=== PATIENT | female | born 1955 | race Caucasian/White ===

== ENCOUNTER 2019-06-20 14:47 | Inpatient (IN) | payer BC, SELFPAY ==
[~2019-06-20] VITALS: Ht 162.6 cm; Wt 77.3 kg
[2019-06-20] VITALS (9 sets, daily range): BP systolic 83–130; BP diastolic 36–71
[2019-06-20] MEDS ORDERED: ondansetron/PF 4mg/2ml inj IV ONE (15:20)
[2019-06-20] MEDS ORDERED: normal saline 1000ML IV soln IVB ONE (15:20)
[2019-06-20] MEDS ORDERED: morphine 4 MG/ML inj SYRINge IV PRN ×2 (15:20→17:50)
--- NOTE | 2019-06-20 15:33 | NUR ---
PT IN 12/13 PAIN UNABLE TO GIVE UA AT THIS TIME WILL CHECK AGAIN ONCE PAIN MEDS HAVE TAKEN EFFECT
[2019-06-20 15:38] LABS: BASOPHILS # (AUTO) 0.1 X10'3 (0-0.2); BASOPHILS % (AUTO) 0.4 % (0-1); EOSINOPHILS % (AUTO) 0.2 % (0-6); HEMATOCRIT 32.9 % (35.0-45.0); HEMOGLOBIN 10.8 g/dl (12.0-16.0); LYMPHOCYTES # (AUTO) 1.5 X10'3 (1.1-4.8); LYMPHOCYTES % (AUTO) 10.3 % (21-51); MEAN CORPUSCULAR HEMOGLOBIN 28.3 PG (27.0-31.0); MEAN CORPUSCULAR HGB CONC 32.9 g/dL (33.0-36.5); MEAN CORPUSCULAR VOLUME 86.2 FL (78-98); MEAN PLATELET VOLUME 7.7 FL (7.4-10.4); MONOCYTES # (AUTO) 0.6 X10'3 (0-0.9); MONOCYTES % (AUTO) 3.9 % (2-12); NEUTROPHILS # (AUTO) 12.7 X10'3 (1.8-7.7); NEUTROPHILS % (AUTO) 85.2 % (42-75); PLATELET COUNT 365 X10'3 (140-440); RED BLOOD COUNT 3.82 X10'6 (4.20-5.60); RED CELL DISTRIBUTION WIDTH 13.4 % (11.5-14.5); WHITE BLOOD COUNT 14.9 X10'3 (4.5-11.0)
[2019-06-20] MEDS ORDERED: fentaNYL/PF 50MCG/1 ML 2ML syringe IV ONE ×2 (15:45→16:35)
[2019-06-20 15:50] LABS: ALANINE AMINOTRANSFERASE 14 U/L (12-78); ALBUMIN 3.6 G/DL (3.4-5.0); ALBUMIN/GLOBULIN RATIO 1.2 (1.1-1.5); ALKALINE PHOSPHATASE 75 IU/L (46-116); ANION GAP 9 (8-16); ASPARTATE AMINO TRANSFERASE 18 U/L (10-37); BILIRUBIN,TOTAL 0.3 MG/DL (0.1-1.0); BLOOD UREA NITROGEN 17 MG/DL (7-18); BUN/CREATININE RATIO 18.1 (6.6-38.0); CALCIUM 8.7 MG/DL (8.5-10.1); CHLORIDE 108 MMOL/L (99-107); CREATININE 0.94 MG/DL (0.40-0.90); GLUCOSE 204 MG/DL (70-104); LIPASE 144 U/L (73-393); POTASSIUM 3.4 MMOL/L (3.5-5.1); SODIUM 141 MMOL/L (135-145); TOTAL CARBON DIOXIDE 24.3 MMOL/L (24-32); TOTAL PROTEIN 6.7 G/DL (6.4-8.2); eGFR 60 ML/MIN
[2019-06-20] MEDS ORDERED: potassium Cl 20 mEq SR tablet PO ONE (15:55)
--- NOTE | 2019-06-20 15:59 | NUR ---
MORPHINE DID NOT DECREASE PAIN, FENTANYL WAS ORDERED AND GIVEN WILL CONTINUE TO MONITOR
--- NOTE | 2019-06-20 16:03 | NUR ---
PT COMPLAINING OF LEFT CHEST PAIN NON RADIATING, EKG AND TROPONINS WILL BE ORDERED
--- NOTE | 2019-06-20 16:42 | NUR ---
jaden [phone]
[2019-06-20] MEDS ORDERED: fentaNYL/PF 50MCG/1 ML 2ML syringe ONE ×2 (17:33→18:03)
[2019-06-20] MEDS ORDERED: heparin 1,000 UNITS/NS 500ml 500 ML ONE (17:33)
[2019-06-20] MEDS ORDERED: midazolam 2 mg/2 ml injection ONE ×2 (17:33→18:03)
[2019-06-20] MEDS ORDERED: iohexol 300mg/ml 100ml inj. ONE (17:33)
[2019-06-20] MEDS ORDERED: LIDOcaine 1%/PF 5ML 10 MG/ML VIAL ONE (17:33)
--- NOTE | 2019-06-20 17:43 | NUR ---
off to IR
[2019-06-20] MEDS: normal saline 1000ml 1,000 ML IV SCH (17:48)
[2019-06-20] MEDS ORDERED: magnesium hydroxide 30ml (MOM) UD suspension PO PRN (17:50)
[2019-06-20] MEDS ORDERED: potassium CL 10mEq/100ml bag 100 ML IV PRN ×2 (17:50)
[2019-06-20] MEDS ORDERED: morphine 2 MG/ML inj. syringe IV PRN (17:50)
[2019-06-20] MEDS ORDERED: HYDROcodone/acetaminophen 10/325mg tab PO PRN (17:50)
[2019-06-20] MEDS ORDERED: acetaminophen 325mg tablet PO PRN ×2 (17:50)
[2019-06-20] MEDS ORDERED: potassium Cl 20 mEq SR tablet PO PRN ×2 (17:50)
[2019-06-20] MEDS ORDERED: LIDOcaine 2% 10ml TOPICAL JELLY (Urojet) TP ONE (17:50)
[2019-06-20] MEDS ORDERED: ondansetron/PF 4mg/2ml inj ONE (18:08)
[2019-06-20] MEDS ORDERED: normal saline 1000ml 1,000 ML IV SCH (18:52)
[2019-06-20] MEDS ORDERED: naloxone 0.4 mg/ml inj IV PRN (18:55)
[2019-06-20] MEDS ORDERED: CADD PCA waste documentation MC PRN (18:55)
--- NOTE | 2019-06-20 19:11 | NUR ---
GAVE REPORT TO KESHAWN RAHMAN IN ICU, PT HAD GONE TO IR THEN WAS ADMITTED TO THE ICU
[2019-06-20 20:14] LABS: HEMATOCRIT 29.6 % (35.0-45.0); HEMOGLOBIN 9.8 g/dl (12.0-16.0); MEAN CORPUSCULAR HEMOGLOBIN 29.4 PG (27.0-31.0); MEAN CORPUSCULAR HGB CONC 33.2 g/dL (33.0-36.5); MEAN CORPUSCULAR VOLUME 88.6 FL (78-98); MEAN PLATELET VOLUME 7.8 FL (7.4-10.4); PLATELET COUNT 289 X10'3 (140-440); RED BLOOD COUNT 3.34 X10'6 (4.20-5.60); RED CELL DISTRIBUTION WIDTH 13.4 % (11.5-14.5); WHITE BLOOD COUNT 20.3 X10'3 (4.5-11.0)
[2019-06-20] MEDS: HYDROmorphone/NS 1 mg/ml CADD 50 ML IV SCH ×3 (21:00→23:00)
[2019-06-20] MEDS: ondansetron/PF 4mg/2ml inj IV PRN (21:15)
[2019-06-21] VITALS (23 sets, daily range): BP systolic 99–133; BP diastolic 47–69
--- NOTE | 2019-06-21 | NUR ---
RN Note -Pt back from IR. Sheath left in with a-line. Addendum: 06/22/19 at 0447 by Rosmery Matta RN entered in error, wrong time. Meant for 06/21 0000
[2019-06-21] MEDS: HYDROmorphone/NS 1 mg/ml CADD 50 ML IV SCH ×11 (00:33→23:00)
[2019-06-21 01:28] LABS: BASOPHILS % (AUTO) 0.2 % (0-1); EOSINOPHILS % (AUTO) 0.1 % (0-6); HEMOGLOBIN 8.7 g/dl (12.0-16.0); LYMPHOCYTES # (AUTO) 1.2 X10'3 (1.1-4.8); LYMPHOCYTES % (AUTO) 6.9 % (21-51); MEAN CORPUSCULAR HEMOGLOBIN 29.4 PG (27.0-31.0); MEAN CORPUSCULAR HGB CONC 33.5 g/dL (33.0-36.5); MEAN CORPUSCULAR VOLUME 87.7 FL (78-98); MEAN PLATELET VOLUME 7.6 FL (7.4-10.4); MONOCYTES # (AUTO) 0.7 X10'3 (0-0.9); MONOCYTES % (AUTO) 4.4 % (2-12); NEUTROPHILS # (AUTO) 14.8 X10'3 (1.8-7.7); NEUTROPHILS % (AUTO) 88.4 % (42-75); PLATELET COUNT 329 X10'3 (140-440); RED BLOOD COUNT 2.96 X10'6 (4.20-5.60); RED CELL DISTRIBUTION WIDTH 13.8 % (11.5-14.5); WHITE BLOOD COUNT 16.8 X10'3 (4.5-11.0)
[2019-06-21 01:41] LABS: ALANINE AMINOTRANSFERASE 10 U/L (12-78); ALBUMIN 3.1 G/DL (3.4-5.0); ALBUMIN/GLOBULIN RATIO 1.1 (1.1-1.5); ALKALINE PHOSPHATASE 67 IU/L (46-116); ANION GAP 10 (8-16); ASPARTATE AMINO TRANSFERASE 17 U/L (10-37); BILIRUBIN,TOTAL 0.2 MG/DL (0.1-1.0); BLOOD UREA NITROGEN 21 MG/DL (7-18); BUN/CREATININE RATIO 17.2 (6.6-38.0); CHLORIDE 109 MMOL/L (99-107); CREATININE 1.22 MG/DL (0.40-0.90); GLUCOSE 215 MG/DL (70-104); POTASSIUM 4.1 MMOL/L (3.5-5.1); SODIUM 143 MMOL/L (135-145); TOTAL CARBON DIOXIDE 24.5 MMOL/L (24-32); eGFR 44 ML/MIN
[2019-06-21 01:43] LABS: MAGNESIUM 1.9 MG/DL (1.5-2.4); PHOSPHORUS 5.3 MG/DL (2.3-4.5)
--- NOTE | 2019-06-21 01:52 | NUR ---
PT hemoglobin 8.7, it has been consistantly dropping over each test. March was informed, will continue to monitor.
[2019-06-21] MEDS: ondansetron/PF 4mg/2ml inj IV PRN ×3 (03:11→15:46)
[2019-06-21 06:21] LABS: HEMATOCRIT 26.4 % (35.0-45.0); HEMOGLOBIN 8.9 g/dl (12.0-16.0); MEAN CORPUSCULAR HEMOGLOBIN 29.6 PG (27.0-31.0); MEAN CORPUSCULAR HGB CONC 33.6 g/dL (33.0-36.5); MEAN CORPUSCULAR VOLUME 87.9 FL (78-98); MEAN PLATELET VOLUME 7.6 FL (7.4-10.4); PLATELET COUNT 293 X10'3 (140-440); RED CELL DISTRIBUTION WIDTH 13.6 % (11.5-14.5)
--- NOTE | 2019-06-21 06:56 | NUR ---
Patient in room ICU 2043. I have received report from LACEY Gómez and had the opportunity to ask questions and assume patient care.
[2019-06-21] MEDS: normal saline 1000ml 1,000 ML IV SCH ×2 (07:08→18:25)
[2019-06-21] MEDS ORDERED: CHOL20004 PO (08:09)
[2019-06-21] MEDS ORDERED: CHOL100017 PO (10:36)
[2019-06-21] MEDS ORDERED: epoetin 20,000 units/ml inj SQ ONE (11:25)
[2019-06-21 12:15] LABS: HEMOGLOBIN 7.2 g/dl (12.0-16.0); MEAN CORPUSCULAR HEMOGLOBIN 28.6 PG (27.0-31.0); MEAN CORPUSCULAR HGB CONC 33.3 g/dL (33.0-36.5); MEAN PLATELET VOLUME 7.4 FL (7.4-10.4); PLATELET COUNT 242 X10'3 (140-440); RED BLOOD COUNT 2.51 X10'6 (4.20-5.60); RED CELL DISTRIBUTION WIDTH 13.4 % (11.5-14.5); WHITE BLOOD COUNT 11.9 X10'3 (4.5-11.0)
[2019-06-21 12:19] LABS: HEMATOCRIT 21.6 % (35.0-45.0)
[2019-06-21 12:49] LABS: FERRITIN 56 NG/ML (8-252)
[2019-06-21] MEDS: sodium ferric gluc complex inj 125 MG in normal saline 100ml IV soln 100 ML IV SCH (12:49)
[2019-06-21 12:52] LABS: % IRON SATURATION 8 % (11-46); IRON 19 UG/DL (49-151); TOTAL IRON BINDING CAPACITY 225 UG/DL (259-388)
[2019-06-21 18:08] LABS: MEAN CORPUSCULAR HEMOGLOBIN 29.3 PG (27.0-31.0); MEAN CORPUSCULAR HGB CONC 33.8 g/dL (33.0-36.5); MEAN CORPUSCULAR VOLUME 86.8 FL (78-98); MEAN PLATELET VOLUME 7.7 FL (7.4-10.4); PLATELET COUNT 212 X10'3 (140-440); RED BLOOD COUNT 2.25 X10'6 (4.20-5.60); RED CELL DISTRIBUTION WIDTH 13.4 % (11.5-14.5); WHITE BLOOD COUNT 9.6 X10'3 (4.5-11.0)
[2019-06-21 18:16] LABS: HEMATOCRIT 19.5 % (35.0-45.0); HEMOGLOBIN 6.6 g/dl (12.0-16.0)
--- NOTE | 2019-06-21 18:19 | NUR ---
Problems reprioritized. Patient report given, questions answered & plan of care reviewed with Winter Spicer RN.
--- NOTE | 2019-06-21 18:30 | NUR ---
RN Note -MD Communication Dr. Luo and Dr. Phillip called regarding critical H&H. No new orders at this time.
--- NOTE | 2019-06-21 21:00 | NUR ---
RN Note -MD Communication Dr. Hameed called to order STAT ab/pelvis CT w/o contrast.
[2019-06-21 21:45] LABS: CLARITY,URINE CLOUDY (Clear); COLOR,URINE YELLOW (Yellow); GLUCOSE, URINE NEGATIVE (Neg); KETONES,URINE NEGATIVE (Neg); LEUKOCYTE ESTERASE ,URINE TRACE (Neg); NITRITES, URINE NEGATIVE (Neg); OCCULT BLOOD,URINE SMALL (Neg); PROTEIN,URINE TRACE mg/dl (Neg); UROBILINOGEN,URINE 0.2 E.U/dL (0.2-1.0)
[2019-06-21 21:53] LABS: UA COLLECTION TYPE CLN CATCH MIDSTREAM
[2019-06-21 21:54] LABS: BACTERIA,URINE FEW /HPF (Neg); RBC,URINE 0-2 /HPF (0-2); SQUAMOUS EPITHELIAL CELL,UR MODERATE /LPF (FEW)
[2019-06-21] MEDS ORDERED: iohexol 300mg/ml 100ml inj. ONE ×2 (22:02→23:11)
[2019-06-21 22:12] LABS: MEAN CORPUSCULAR HGB CONC 34.3 g/dL (33.0-36.5); MEAN CORPUSCULAR VOLUME 87.4 FL (78-98); MEAN PLATELET VOLUME 7.6 FL (7.4-10.4); PLATELET COUNT 192 X10'3 (140-440); RED BLOOD COUNT 2.16 X10'6 (4.20-5.60); RED CELL DISTRIBUTION WIDTH 13.8 % (11.5-14.5); WHITE BLOOD COUNT 9.5 X10'3 (4.5-11.0)
[2019-06-21] MEDS ORDERED: midazolam 2 mg/2 ml injection ONE (22:12)
[2019-06-21] MEDS ORDERED: fentaNYL/PF 50MCG/1 ML 2ML syringe ONE (22:12)
[2019-06-21] MEDS ORDERED: heparin 1,000 UNITS/NS 500ml 500 ML ONE ×2 (22:13→23:11)
[2019-06-21 22:16] LABS: HEMATOCRIT 18.9 % (35.0-45.0); HEMOGLOBIN 6.5 g/dl (12.0-16.0)
[2019-06-21 22:21] LABS: PARTIAL THROMBOPLASTIN TIME 28 SECONDS (22-32)
[2019-06-21 22:22] LABS: ALANINE AMINOTRANSFERASE 12 U/L (12-78); ALBUMIN 3.1 G/DL (3.4-5.0); ALBUMIN/GLOBULIN RATIO 1.1 (1.1-1.5); ALKALINE PHOSPHATASE 64 IU/L (46-116); ANION GAP 5 (8-16); ASPARTATE AMINO TRANSFERASE 32 U/L (10-37); BILIRUBIN,TOTAL 0.2 MG/DL (0.1-1.0); BLOOD UREA NITROGEN 32 MG/DL (7-18); BUN/CREATININE RATIO 19.6 (6.6-38.0); CALCIUM 8.2 MG/DL (8.5-10.1); CHLORIDE 110 MMOL/L (99-107); CREATININE 1.63 MG/DL (0.40-0.90); GLUCOSE 104 MG/DL (70-104); POTASSIUM 4.3 MMOL/L (3.5-5.1); SODIUM 141 MMOL/L (135-145); eGFR 32 ML/MIN
--- NOTE | 2019-06-21 22:30 | NUR ---
RN Note -Cleared with Boat[employer] Wood to allow to visit pt before IR procedure
[2019-06-21] MEDS ORDERED: ondansetron/PF 4mg/2ml inj ONE (23:30)
[2019-06-21] MEDS ORDERED: DESMOPRESSIN IV ONE (23:40)
[2019-06-21] MEDS ORDERED: tranexamic acid 1gm/0.7% sal. 100 ML IV ONE (23:40)
[2019-06-21] MEDS ORDERED: NORMAL SALINE IV ONE (23:40)
[2019-06-22] VITALS (27 sets, daily range): BP systolic 105–142; BP diastolic 49–69
--- NOTE | 2019-06-22 | NUR ---
RN Note -Pt back from IR. Sheath left in with a-line.
[2019-06-22] MEDS: HYDROmorphone/NS 1 mg/ml CADD 50 ML IV SCH ×12 (01:00→23:00)
[2019-06-22] MEDS: proCHLORperazine 10 MG/2 ml inj IV PRN ×2 (01:35→19:07)
--- NOTE | 2019-06-22 03:00 | NUR ---
RN Note -MD Communication March notified of critical H&H 6.0 and 17.9. No new orders at this time.
[2019-06-22 03:12] LABS: BASOPHILS % (AUTO) 0.3 % (0-1); EOSINOPHILS % (AUTO) 0.1 % (0-6); LYMPHOCYTES # (AUTO) 0.8 X10'3 (1.1-4.8); LYMPHOCYTES % (AUTO) 9.1 % (21-51); MEAN CORPUSCULAR HEMOGLOBIN 29.5 PG (27.0-31.0); MEAN CORPUSCULAR HGB CONC 34.2 g/dL (33.0-36.5); MEAN CORPUSCULAR VOLUME 86.3 FL (78-98); MEAN PLATELET VOLUME 7.4 FL (7.4-10.4); MONOCYTES # (AUTO) 0.8 X10'3 (0-0.9); MONOCYTES % (AUTO) 8.5 % (2-12); NEUTROPHILS # (AUTO) 7.6 X10'3 (1.8-7.7); PLATELET COUNT 177 X10'3 (140-440); RED BLOOD COUNT 2.04 X10'6 (4.20-5.60); RED CELL DISTRIBUTION WIDTH 13.9 % (11.5-14.5); WHITE BLOOD COUNT 9.2 X10'3 (4.5-11.0)
[2019-06-22 03:20] LABS: HEMATOCRIT 17.6 % (35.0-45.0)
[2019-06-22 03:28] LABS: ALANINE AMINOTRANSFERASE 12 U/L (12-78); ALBUMIN 2.9 G/DL (3.4-5.0); ALKALINE PHOSPHATASE 64 IU/L (46-116); ANION GAP 5 (8-16); ASPARTATE AMINO TRANSFERASE 31 U/L (10-37); BILIRUBIN,TOTAL 0.2 MG/DL (0.1-1.0); BLOOD UREA NITROGEN 28 MG/DL (7-18); BUN/CREATININE RATIO 21.7 (6.6-38.0); CALCIUM 8.1 MG/DL (8.5-10.1); CHLORIDE 110 MMOL/L (99-107); CREATININE 1.29 MG/DL (0.40-0.90); GLUCOSE 116 MG/DL (70-104); MAGNESIUM 2.1 MG/DL (1.5-2.4); PHOSPHORUS 3.7 MG/DL (2.3-4.5); POTASSIUM 4.2 MMOL/L (3.5-5.1); SODIUM 141 MMOL/L (135-145); TOTAL CARBON DIOXIDE 25.8 MMOL/L (24-32); TOTAL PROTEIN 5.8 G/DL (6.4-8.2); eGFR 42 ML/MIN
[2019-06-22] MEDS ORDERED: epoetin 20,000 units/ml inj SQ ONE (09:00)
[2019-06-22 09:21] LABS: MEAN CORPUSCULAR HEMOGLOBIN 30.3 PG (27.0-31.0); MEAN CORPUSCULAR VOLUME 86.6 FL (78-98); MEAN PLATELET VOLUME 7.3 FL (7.4-10.4); PLATELET COUNT 170 X10'3 (140-440); RED BLOOD COUNT 1.88 X10'6 (4.20-5.60); RED CELL DISTRIBUTION WIDTH 13.6 % (11.5-14.5); WHITE BLOOD COUNT 9.4 X10'3 (4.5-11.0)
[2019-06-22 09:26] LABS: HEMATOCRIT 16.3 % (35.0-45.0); HEMOGLOBIN 5.7 g/dl (12.0-16.0)
[2019-06-22] MEDS ORDERED: LIDOcaine 2% 10ml TOPICAL JELLY (Urojet) TP ONE (09:27)
--- NOTE | 2019-06-22 10:10 | NUR ---
All critical lab values have been reported to MD this morning within 30 minutes of results
[2019-06-22 10:46] LABS: ABG BASE EXCESS -1.6 mmol/L (-2.0-3.0); ABG HCO3 22.9 mmol/L (22.0-26.0); ABG OXYGEN SATURATION 95.1 % (95-98); ABG PCO2 (T) 36.8 mmHg (35.0-45.0); ABG PH (T) 7.411 (7.350-7.450); ABG PO2 (T) 75.8 mmHg (83-108); FCOHb 0.1 % (0.5-1.5); TOTAL HEMOGLOBIN 5.8 G/dl (12.0-16.0)
--- NOTE | 2019-06-22 12:03 | NUR ---
per Dr Luo, we are using ABG for hemoglobin to minimize blood loss at it requires less blood then a hemogram
[2019-06-22] MEDS: sodium ferric gluc complex inj 125 MG in normal saline 100ml IV soln 100 ML IV SCH (12:05)
[2019-06-22 14:11] LABS: ABG BASE EXCESS -1.2 mmol/L (-2.0-3.0); ABG HCO3 23.4 mmol/L (22.0-26.0); ABG OXYGEN SATURATION 95.1 % (95-98); ABG PCO2 (T) 38.1 mmHg (35.0-45.0); ABG PH (T) 7.406 (7.350-7.450); ABG PO2 (T) 76.9 mmHg (83-108); FCOHb 0.3 % (0.5-1.5); FMetHb 0.2 % (0.3-1.12); FO2Hb 94.6 % (94-100); TOTAL HEMOGLOBIN 6.1 G/dl (12.0-16.0)
[2019-06-22 17:16] LABS: ABG BASE EXCESS -1.1 mmol/L (-2.0-3.0); ABG HCO3 23.8 mmol/L (22.0-26.0); ABG OXYGEN SATURATION 95.1 % (95-98); ABG PCO2 (T) 40.3 mmHg (35.0-45.0); ABG PH (T) 7.389 (7.350-7.450); ABG PO2 (T) 77.4 mmHg (83-108); FCOHb 0.3 % (0.5-1.5); FLOW 2 L/min; FMetHb 0.3 % (0.3-1.12); FO2Hb 94.5 % (94-100); TOTAL HEMOGLOBIN 5.9 G/dl (12.0-16.0)
[2019-06-22] MEDS: pantoprazole 40 MG vial IV SCH (19:06)
[2019-06-22 21:11] LABS: ABG BASE EXCESS 0.9 mmol/L (-2.0-3.0); ABG HCO3 25.7 mmol/L (22.0-26.0); ABG OXYGEN SATURATION 91.7 % (95-98); ABG PCO2 (T) 42.1 mmHg (35.0-45.0); ABG PH (T) 7.404 (7.350-7.450); ABG PO2 (T) 63.4 mmHg (83-108); FCOHb 0.3 % (0.5-1.5); FLOW 2 L/min; FO2Hb 91.4 % (94-100); TOTAL HEMOGLOBIN 5.9 G/dl (12.0-16.0)
[2019-06-23] VITALS (24 sets, daily range): BP systolic 111–142; BP diastolic 43–86
[2019-06-23] MEDS: HYDROmorphone/NS 1 mg/ml CADD 50 ML IV SCH ×12 (00:54→23:00)
[2019-06-23 01:26] LABS: ABG BASE EXCESS -0.2 mmol/L (-2.0-3.0); ABG HCO3 24.7 mmol/L (22.0-26.0); ABG OXYGEN SATURATION 93.2 % (95-98); ABG PCO2 (T) 41.7 mmHg (35.0-45.0); ABG PH (T) 7.391 (7.350-7.450); ABG PO2 (T) 67.8 mmHg (83-108); FCOHb 0.3 % (0.5-1.5); FLOW 2 L/min; FMetHb 0.3 % (0.3-1.12); FO2Hb 92.6 % (94-100); TOTAL HEMOGLOBIN 6.1 G/dl (12.0-16.0)
[2019-06-23 03:13] LABS: BASOPHILS % (AUTO) 0.1 % (0-1); EOSINOPHILS % (AUTO) 0.1 % (0-6); LYMPHOCYTES # (AUTO) 0.7 X10'3 (1.1-4.8); LYMPHOCYTES % (AUTO) 6.3 % (21-51); MEAN CORPUSCULAR HEMOGLOBIN 29.7 PG (27.0-31.0); MEAN CORPUSCULAR VOLUME 87.3 FL (78-98); MEAN PLATELET VOLUME 7.6 FL (7.4-10.4); MONOCYTES # (AUTO) 0.8 X10'3 (0-0.9); MONOCYTES % (AUTO) 7.6 % (2-12); NEUTROPHILS # (AUTO) 9.1 X10'3 (1.8-7.7); NEUTROPHILS % (AUTO) 85.9 % (42-75); PLATELET COUNT 185 X10'3 (140-440); WHITE BLOOD COUNT 10.5 X10'3 (4.5-11.0)
[2019-06-23 03:19] LABS: HEMOGLOBIN 5.6 g/dl (12.0-16.0)
[2019-06-23 03:20] LABS: HEMATOCRIT 16.6 % (35.0-45.0)
[2019-06-23 03:27] LABS: ALANINE AMINOTRANSFERASE 15 U/L (12-78); ALBUMIN 2.7 G/DL (3.4-5.0); ALBUMIN/GLOBULIN RATIO 0.8 (1.1-1.5); ALKALINE PHOSPHATASE 60 IU/L (46-116); ANION GAP 5 (8-16); ASPARTATE AMINO TRANSFERASE 44 U/L (10-37); BILIRUBIN,TOTAL 0.4 MG/DL (0.1-1.0); BLOOD UREA NITROGEN 18 MG/DL (7-18); BUN/CREATININE RATIO 21.2 (6.6-38.0); CALCIUM 8.3 MG/DL (8.5-10.1); CHLORIDE 109 MMOL/L (99-107); CREATININE 0.85 MG/DL (0.40-0.90); GLUCOSE 86 MG/DL (70-104); MAGNESIUM 2.2 MG/DL (1.5-2.4); PHOSPHORUS 3.2 MG/DL (2.3-4.5); POTASSIUM 4.1 MMOL/L (3.5-5.1); SODIUM 141 MMOL/L (135-145); TOTAL CARBON DIOXIDE 26.9 MMOL/L (24-32); TOTAL PROTEIN 5.9 G/DL (6.4-8.2); eGFR 67 ML/MIN
[2019-06-23] MEDS: pantoprazole 40 MG vial IV SCH (07:40)
[2019-06-23 07:46] LABS: ABG BASE EXCESS -2.2 mmol/L (-2.0-3.0); ABG HCO3 22.5 mmol/L (22.0-26.0); ABG OXYGEN SATURATION 95.8 % (95-98); ABG PCO2 (T) 37.8 mmHg (35.0-45.0); ABG PH (T) 7.393 (7.350-7.450); ABG PO2 (T) 85.7 mmHg (83-108); FCOHb 0.3 % (0.5-1.5); FMetHb 0.1 % (0.3-1.12); FO2Hb 95.4 % (94-100); TOTAL HEMOGLOBIN 6.3 G/dl (12.0-16.0)
[2019-06-23] MEDS: sodium ferric gluc complex inj 125 MG in normal saline 100ml IV soln 100 ML IV SCH (08:26)
[2019-06-23] MEDS: folic acid 1mg tablet PO SCH (09:19)
[2019-06-23] MEDS ORDERED: epoetin 20,000 units/ml inj SQ ONE (09:20)
[2019-06-23] MEDS ORDERED: sodium ferric gluc complex inj 125 MG in normal saline 100ml IV soln 100 ML IV ONE (09:30)
[2019-06-23 11:30] LABS: ABG BASE EXCESS -2.5 mmol/L (-2.0-3.0); ABG HCO3 22.2 mmol/L (22.0-26.0); ABG OXYGEN SATURATION 97.7 % (95-98); ABG PCO2 (T) 37.6 mmHg (35.0-45.0); ABG PO2 (T) 113.4 mmHg (83-108); FCOHb 0.3 % (0.5-1.5); FMetHb 0.4 % (0.3-1.12); TOTAL HEMOGLOBIN 5.7 G/dl (12.0-16.0)
[2019-06-23] MEDS ORDERED: albumin (Human) 5% 250ml 250 ML IV ONE ×2 (13:20→14:20)
[2019-06-23 15:10] LABS: ABG BASE EXCESS -1.7 mmol/L (-2.0-3.0); ABG HCO3 22.8 mmol/L (22.0-26.0); ABG OXYGEN SATURATION 95.7 % (95-98); ABG PCO2 (T) 36.4 mmHg (35.0-45.0); ABG PH (T) 7.414 (7.350-7.450); ABG PO2 (T) 83.6 mmHg (83-108); FO2Hb 95.7 % (94-100); TOTAL HEMOGLOBIN 5.3 G/dl (12.0-16.0)
--- NOTE | 2019-06-23 15:31 | NUR ---
Hgb 5.3, called Dr. Phillip and received order to check Folate and B2 Level. [facility] Order placed and called Lab to process this order through a pathologist.
--- NOTE | 2019-06-23 18:21 | NUR ---
Problems reprioritized. Patient report given to Jluis, questions answered & plan of care reviewed with .
[2019-06-23 19:26] LABS: ABG HCO3 24.8 mmol/L (22.0-26.0); ABG OXYGEN SATURATION 93.5 % (95-98); ABG PCO2 (T) 40.5 mmHg (35.0-45.0); ABG PH (T) 7.404 (7.350-7.450); ABG PO2 (T) 69.2 mmHg (83-108); FCOHb 0.4 % (0.5-1.5); FLOW 2 L/min; FMetHb 0.1 % (0.3-1.12); TOTAL HEMOGLOBIN 5.9 G/dl (12.0-16.0)
[2019-06-23] MEDS: normal saline 1000ml 1,000 ML IV SCH (20:57)
[2019-06-23 23:26] LABS: ABG BASE EXCESS 0.3 mmol/L (-2.0-3.0); ABG HCO3 24.6 mmol/L (22.0-26.0); ABG OXYGEN SATURATION 95.3 % (95-98); ABG PCO2 (T) 37.8 mmHg (35.0-45.0); ABG PH (T) 7.432 (7.350-7.450); ABG PO2 (T) 80.5 mmHg (83-108); FCOHb 0.1 % (0.5-1.5); FLOW 2 L/min; FMetHb 0.5 % (0.3-1.12); FO2Hb 94.7 % (94-100); TOTAL HEMOGLOBIN 5.7 G/dl (12.0-16.0)
[2019-06-24] VITALS (23 sets, daily range): BP systolic 104–155; BP diastolic 56–85
[2019-06-24] MEDS: HYDROmorphone/NS 1 mg/ml CADD 50 ML IV SCH ×9 (01:00→23:00)
[2019-06-24 03:01] LABS: ABG BASE EXCESS -0.2 mmol/L (-2.0-3.0); ABG HCO3 24.4 mmol/L (22.0-26.0); ABG OXYGEN SATURATION 96.4 % (95-98); ABG PCO2 (T) 39.5 mmHg (35.0-45.0); ABG PH (T) 7.409 (7.350-7.450); ABG PO2 (T) 86.1 mmHg (83-108); FCOHb 0.7 % (0.5-1.5); FLOW 2 L/min; FMetHb 0.1 % (0.3-1.12); FO2Hb 95.6 % (94-100); TOTAL HEMOGLOBIN 5.5 G/dl (12.0-16.0)
[2019-06-24 03:27] LABS: BASOPHILS % (AUTO) 0.5 % (0-1); EOSINOPHILS # (AUTO) 0.1 X10'3 (0-0.9); EOSINOPHILS % (AUTO) 0.9 % (0-6); LYMPHOCYTES # (AUTO) 0.9 X10'3 (1.1-4.8); LYMPHOCYTES % (AUTO) 10.2 % (21-51); MEAN CORPUSCULAR HEMOGLOBIN 29.8 PG (27.0-31.0); MEAN CORPUSCULAR VOLUME 87.5 FL (78-98); MEAN PLATELET VOLUME 7.7 FL (7.4-10.4); MONOCYTES # (AUTO) 0.7 X10'3 (0-0.9); MONOCYTES % (AUTO) 7.8 % (2-12); NEUTROPHILS # (AUTO) 7.3 X10'3 (1.8-7.7); NEUTROPHILS % (AUTO) 80.6 % (42-75); PLATELET COUNT 231 X10'3 (140-440); RED BLOOD COUNT 1.83 X10'6 (4.20-5.60); RED CELL DISTRIBUTION WIDTH 13.5 % (11.5-14.5); WHITE BLOOD COUNT 9.1 X10'3 (4.5-11.0)
[2019-06-24 03:34] LABS: ALANINE AMINOTRANSFERASE 13 U/L (12-78); ALBUMIN 2.5 G/DL (3.4-5.0); ALBUMIN/GLOBULIN RATIO 0.7 (1.1-1.5); ALKALINE PHOSPHATASE 63 IU/L (46-116); ANION GAP 7 (8-16); ASPARTATE AMINO TRANSFERASE 36 U/L (10-37); BILIRUBIN,TOTAL 0.4 MG/DL (0.1-1.0); BLOOD UREA NITROGEN 15 MG/DL (7-18); BUN/CREATININE RATIO 21.1 (6.6-38.0); CALCIUM 8.2 MG/DL (8.5-10.1); CHLORIDE 105 MMOL/L (99-107); CREATININE 0.71 MG/DL (0.40-0.90); GLUCOSE 100 MG/DL (70-104); HEMOGLOBIN 5.4 g/dl (12.0-16.0); MAGNESIUM 2.1 MG/DL (1.5-2.4); PHOSPHORUS 2.4 MG/DL (2.3-4.5); POTASSIUM 3.8 MMOL/L (3.5-5.1); SODIUM 140 MMOL/L (135-145); TOTAL CARBON DIOXIDE 27.7 MMOL/L (24-32); TOTAL PROTEIN 5.9 G/DL (6.4-8.2); eGFR 83 ML/MIN
[2019-06-24 07:15] LABS: ABG BASE EXCESS 0.5 mmol/L (-2.0-3.0); ABG HCO3 25.4 mmol/L (22.0-26.0); ABG OXYGEN SATURATION 95.8 % (95-98); ABG PCO2 (T) 42.8 mmHg (35.0-45.0); ABG PH (T) 7.392 (7.350-7.450); ABG PO2 (T) 82.5 mmHg (83-108); FCOHb 0.4 % (0.5-1.5); FMetHb 0.3 % (0.3-1.12); FO2Hb 95.1 % (94-100); TOTAL HEMOGLOBIN 6.8 G/dl (12.0-16.0)
[2019-06-24] MEDS: pantoprazole 40 MG vial IV SCH (08:04)
[2019-06-24] MEDS: folic acid 1mg tablet PO SCH (08:05)
[2019-06-24] MEDS: sodium ferric gluc complex inj 125 MG in normal saline 100ml IV soln 100 ML IV SCH ×2 (09:18→10:25)
[2019-06-24] MEDS ORDERED: epoetin 20,000 units/ml inj SQ ONE (11:25)
--- NOTE | 2019-06-24 12:37 | NUR ---
LACEY TC: Pt placed on clear liquids requesting Ensure Clear ONS; pending order at this time. Can send TIDWM once order received. Addendum: 06/24/19 at [address] Amended: Links added.
[2019-06-24] MEDS: NUT.TX.IMPAIRED DIGEST FXN (Ensure Clear) 237 ML PO SCH ×2 (13:00→18:00)
[2019-06-24 13:15] LABS: ABG BASE EXCESS 0.5 mmol/L (-2.0-3.0); ABG HCO3 25.5 mmol/L (22.0-26.0); ABG OXYGEN SATURATION 95.5 % (95-98); ABG PCO2 (T) 42.9 mmHg (35.0-45.0); ABG PH (T) 7.392 (7.350-7.450); ABG PO2 (T) 79.6 mmHg (83-108); FMetHb 0.3 % (0.3-1.12); FO2Hb 95.2 % (94-100); TOTAL HEMOGLOBIN 7.2 G/dl (12.0-16.0)
[2019-06-24] MEDS: vitamin B comp w/Vit. C tab 1 TAB TABLET PO SCH (19:00)
[2019-06-24] MEDS: cyanocobalamin 500mcg tablet PO SCH (19:00)
[2019-06-24 20:11] LABS: ABG BASE EXCESS 0.8 mmol/L (-2.0-3.0); ABG HCO3 25.2 mmol/L (22.0-26.0); ABG OXYGEN SATURATION 95.7 % (95-98); ABG PCO2 (T) 38.9 mmHg (35.0-45.0); ABG PH (T) 7.429 (7.350-7.450); ABG PO2 (T) 81.1 mmHg (83-108); FCOHb 0.3 % (0.5-1.5); FLOW 2 L/min; FMetHb 0.3 % (0.3-1.12); FO2Hb 95.1 % (94-100); TOTAL HEMOGLOBIN 6.4 G/dl (12.0-16.0)
[2019-06-25] VITALS (24 sets, daily range): BP systolic 110–143; BP diastolic 55–74
[2019-06-25] MEDS: HYDROmorphone/NS 1 mg/ml CADD 50 ML IV SCH ×12 (01:00→23:00)
[2019-06-25 03:08] LABS: BASOPHILS # (AUTO) 0.1 X10'3 (0-0.2); BASOPHILS % (AUTO) 0.7 % (0-1); EOSINOPHILS # (AUTO) 0.2 X10'3 (0-0.9); EOSINOPHILS % (AUTO) 2.1 % (0-6); LYMPHOCYTES # (AUTO) 0.9 X10'3 (1.1-4.8); MEAN CORPUSCULAR HEMOGLOBIN 29.9 PG (27.0-31.0); MEAN CORPUSCULAR HGB CONC 33.9 g/dL (33.0-36.5); MEAN CORPUSCULAR VOLUME 88.1 FL (78-98); MEAN PLATELET VOLUME 7.6 FL (7.4-10.4); MONOCYTES # (AUTO) 0.6 X10'3 (0-0.9); MONOCYTES % (AUTO) 7.7 % (2-12); NEUTROPHILS % (AUTO) 77.5 % (42-75); PLATELET COUNT 296 X10'3 (140-440); RED BLOOD COUNT 2.07 X10'6 (4.20-5.60); RED CELL DISTRIBUTION WIDTH 13.4 % (11.5-14.5); WHITE BLOOD COUNT 7.8 X10'3 (4.5-11.0)
[2019-06-25 03:13] LABS: HEMATOCRIT 18.3 % (35.0-45.0); HEMOGLOBIN 6.2 g/dl (12.0-16.0)
[2019-06-25 03:14] LABS: ALANINE AMINOTRANSFERASE 17 U/L (12-78); ALBUMIN 2.5 G/DL (3.4-5.0); ALBUMIN/GLOBULIN RATIO 0.7 (1.1-1.5); ALKALINE PHOSPHATASE 69 IU/L (46-116); ANION GAP 6 (8-16); ASPARTATE AMINO TRANSFERASE 29 U/L (10-37); BILIRUBIN,TOTAL 0.7 MG/DL (0.1-1.0); BLOOD UREA NITROGEN 10 MG/DL (7-18); BUN/CREATININE RATIO 13.2 (6.6-38.0); CALCIUM 8.5 MG/DL (8.5-10.1); CHLORIDE 103 MMOL/L (99-107); CREATININE 0.76 MG/DL (0.40-0.90); GLUCOSE 108 MG/DL (70-104); MAGNESIUM 1.9 MG/DL (1.5-2.4); PHOSPHORUS 3.2 MG/DL (2.3-4.5); POTASSIUM 3.7 MMOL/L (3.5-5.1); SODIUM 139 MMOL/L (135-145); TOTAL CARBON DIOXIDE 30.4 MMOL/L (24-32); TOTAL PROTEIN 6.3 G/DL (6.4-8.2); eGFR 77 ML/MIN
--- NOTE | 2019-06-25 06:15 | NUR ---
Patient in room ICU 2043. I have received report from LACEY Rodgers and had the opportunity to ask questions and assume patient care.
[2019-06-25 08:11] LABS: ABG BASE EXCESS 3.2 mmol/L (-2.0-3.0); ABG HCO3 27.5 mmol/L (22.0-26.0); ABG OXYGEN SATURATION 96.6 % (95-98); ABG PCO2 (T) 39.5 mmHg (35.0-45.0); ABG PH (T) 7.457 (7.350-7.450); ALLEN'S TEST POSITIVE; FCOHb 0.1 % (0.5-1.5); FLOW 2 L/min; FMetHb 0.3 % (0.3-1.12); FO2Hb 96.2 % (94-100); PATIENT TEMPERATURE 36.4; TOTAL HEMOGLOBIN 6.5 G/dl (12.0-16.0)
[2019-06-25] MEDS: cyanocobalamin 500mcg tablet PO SCH (08:16)
[2019-06-25] MEDS: folic acid 1mg tablet PO SCH (08:16)
[2019-06-25] MEDS: vitamin B comp w/Vit. C tab 1 TAB TABLET PO SCH (08:16)
[2019-06-25] MEDS: pantoprazole 40 MG vial IV SCH (08:17)
[2019-06-25] MEDS: sodium ferric gluc complex inj 125 MG in normal saline 100ml IV soln 100 ML IV SCH ×2 (08:28→08:34)
[2019-06-25] MEDS: NUT.TX.IMPAIRED DIGEST FXN (Ensure Clear) 237 ML PO SCH ×3 (08:40→18:00)
[2019-06-25] MEDS ORDERED: epoetin 20,000 units/ml inj SQ ONE (09:05)
[2019-06-25 09:33] LABS: ABSOLUTE RETICS # 108300 /CUMM (23000-93000); RETICULOCYTE % (AUTO) 5.3 % (0.5-1.5)
--- NOTE | 2019-06-25 12:37 | NUR ---
Initial: Pt admit w/ LUQ pain DX retroperitoneal hemorrhage emanating from a large left renal angiomyolipoma and anemia refusing blood products hx Bahai per MD. Pt s/p embolization advanced to clear liquids receiving ensure clears TIDWM PO 75% avg first meals post-op. LBM 06/20 receiving colace. RONAN d/w RN regarding additional PRN bowel care since ordered. Receiving iron, B12, folic, vitamin C, and B complex per MD. Will monitor for diet advancement and tolerance. Rec: 1. advance diet as medically indicated to heart healthy 2. ensure clears TIDWM; consider ensure enlive vs high protein following diet advancement and PO hx 3. routine bowel care 4. wt per rx Addendum: 06/25/19 at [address] Amended: Links added.
[2019-06-25 15:16] LABS: ABG BASE EXCESS 3.7 mmol/L (-2.0-3.0); ABG OXYGEN SATURATION 94.9 % (95-98); ABG PCO2 (T) 41.2 mmHg (35.0-45.0); ABG PO2 (T) 74.4 mmHg (83-108); FCOHb 0.6 % (0.5-1.5); FLOW 2 L/min; FMetHb 0.3 % (0.3-1.12); TOTAL HEMOGLOBIN 6.6 G/dl (12.0-16.0)
[2019-06-25] MEDS: lactose-reduced food (Ensure High Protein) 237ml bottle PO SCH (18:00)
--- NOTE | 2019-06-25 18:15 | NUR ---
Patient in room ICU 2043. I have received report from Gabbie RAHMAN and had the opportunity to ask questions and assume patient care.
--- NOTE | 2019-06-25 18:20 | NUR ---
Problems reprioritized. Patient report given, questions answered & plan of care reviewed with LACEY Jacobs.
[2019-06-25] MEDS: normal saline 1000ml 1,000 ML IV SCH (18:25)
[2019-06-25] MEDS: polyethylene glycol 3350 17gm powd pack PO SCH (20:09)
[2019-06-25] MEDS: docusate sod 100mg capsule PO SCH (20:09)
[2019-06-25 20:21] LABS: ABG BASE EXCESS 4.3 mmol/L (-2.0-3.0); ABG HCO3 28.3 mmol/L (22.0-26.0); ABG OXYGEN SATURATION 95.3 % (95-98); ABG PH (T) 7.468 (7.350-7.450); ABG PO2 (T) 78.6 mmHg (83-108); FCOHb 0.4 % (0.5-1.5); FLOW 2 L/min; FMetHb 0.1 % (0.3-1.12); FO2Hb 94.8 % (94-100); TOTAL HEMOGLOBIN 7.7 G/dl (12.0-16.0)
[2019-06-26] VITALS (25 sets, daily range): BP systolic 104–144; BP diastolic 50–79
[2019-06-26] MEDS: HYDROmorphone/NS 1 mg/ml CADD 50 ML IV SCH ×12 (01:00→23:00)
[2019-06-26 05:07] LABS: BASOPHILS % (AUTO) 0.7 % (0-1); EOSINOPHILS # (AUTO) 0.2 X10'3 (0-0.9); EOSINOPHILS % (AUTO) 2.8 % (0-6); LYMPHOCYTES # (AUTO) 1.3 X10'3 (1.1-4.8); LYMPHOCYTES % (AUTO) 17.9 % (21-51); MEAN CORPUSCULAR HEMOGLOBIN 30.6 PG (27.0-31.0); MEAN CORPUSCULAR HGB CONC 34.3 g/dL (33.0-36.5); MEAN PLATELET VOLUME 7.2 FL (7.4-10.4); MONOCYTES # (AUTO) 0.7 X10'3 (0-0.9); NEUTROPHILS # (AUTO) 4.9 X10'3 (1.8-7.7); NEUTROPHILS % (AUTO) 68.6 % (42-75); PLATELET COUNT 320 X10'3 (140-440); RED BLOOD COUNT 2.05 X10'6 (4.20-5.60); RED CELL DISTRIBUTION WIDTH 13.6 % (11.5-14.5); WHITE BLOOD COUNT 7.2 X10'3 (4.5-11.0)
[2019-06-26 05:09] LABS: HEMATOCRIT 18.2 % (35.0-45.0); HEMOGLOBIN 6.3 g/dl (12.0-16.0)
[2019-06-26 05:25] LABS: ALANINE AMINOTRANSFERASE 16 U/L (12-78); ALBUMIN 2.3 G/DL (3.4-5.0); ALBUMIN/GLOBULIN RATIO 0.6 (1.1-1.5); ALKALINE PHOSPHATASE 71 IU/L (46-116); ANION GAP 4 (8-16); ASPARTATE AMINO TRANSFERASE 29 U/L (10-37); BILIRUBIN,TOTAL 0.7 MG/DL (0.1-1.0); BLOOD UREA NITROGEN 11 MG/DL (7-18); BUN/CREATININE RATIO 15.3 (6.6-38.0); CALCIUM 8.5 MG/DL (8.5-10.1); CHLORIDE 104 MMOL/L (99-107); CREATININE 0.72 MG/DL (0.40-0.90); GLUCOSE 98 MG/DL (70-104); MAGNESIUM 1.9 MG/DL (1.5-2.4); PHOSPHORUS 3.4 MG/DL (2.3-4.5); POTASSIUM 3.8 MMOL/L (3.5-5.1); SODIUM 140 MMOL/L (135-145); TOTAL CARBON DIOXIDE 32.3 MMOL/L (24-32); TOTAL PROTEIN 6.1 G/DL (6.4-8.2); eGFR 82 ML/MIN
--- NOTE | 2019-06-26 05:26 | NUR ---
Notified March SENIOR BEHAVIORAL SCIENTIST of critical H&H 6.3, 18.2. New orders for ABG q6hr. Will continue to monitor patient closely.
--- NOTE | 2019-06-26 06:14 | NUR ---
Problems reprioritized. Patient report given, questions answered & plan of care reviewed with Gabbie RAHMAN.
[2019-06-26] MEDS ORDERED: dextrose 50%-water 50ml dispensing syringe IV ONE (07:54)
[2019-06-26] MEDS: vitamin B comp w/Vit. C tab 1 TAB TABLET PO SCH (07:59)
[2019-06-26] MEDS: pantoprazole 40mg Tablet.DR PO SCH (07:59)
[2019-06-26] MEDS: cyanocobalamin 500mcg tablet PO SCH (07:59)
[2019-06-26] MEDS: docusate sod 100mg capsule PO SCH ×2 (07:59→19:47)
[2019-06-26] MEDS: folic acid 1mg tablet PO SCH (08:00)
[2019-06-26] MEDS: lactose-reduced food (Ensure High Protein) 237ml bottle PO SCH ×3 (08:00→18:53)
[2019-06-26] MEDS: NUT.TX.IMPAIRED DIGEST FXN (Ensure Clear) 237 ML PO SCH ×3 (08:00→18:53)
[2019-06-26] MEDS: sodium ferric gluc complex inj 125 MG in normal saline 100ml IV soln 100 ML IV SCH ×2 (08:41→09:00)
[2019-06-26] MEDS ORDERED: epoetin 20,000 units/ml inj SQ ONE (11:35)
--- NOTE | 2019-06-26 12:30 | NUR ---
Dr. Luo wanted patient to begin to work with PT and try to walk. I acknowleged that I was planning on sitting her up at the side of bed an dangling and he gave the OK but to take it slow. I assisted patient to the side of bed to dangle for several minutes. She had no complaints of dizziness or SOB and her HR remained in the low 100s. Myself and Lina Todd RN assisted the patient to a standing position and she remained stable. We then sat her in a chair at bedside. She stated no dizziness, SOB. She reports that she just feels weak.
[2019-06-26] MEDS: ondansetron/PF 4mg/2ml inj IV PRN (13:27)
--- NOTE | 2019-06-26 18:22 | NUR ---
Problems reprioritized. Patient report given, questions answered & plan of care reviewed with LACEY Gaytan.
--- NOTE | 2019-06-26 18:23 | NUR ---
Patient in room ICU 2043. I have received report from Peyton RAHMAN and had the opportunity to ask questions and assume patient care.
[2019-06-26] MEDS: proCHLORperazine 10 MG/2 ml inj IV PRN (18:31)
[2019-06-26] MEDS: polyethylene glycol 3350 17gm powd pack PO SCH (19:47)
[2019-06-27] VITALS (10 sets, daily range): BP systolic 113–146; BP diastolic 60–74
[2019-06-27] MEDS: HYDROmorphone/NS 1 mg/ml CADD 50 ML IV SCH ×5 (01:00→09:00)
[2019-06-27 05:09] LABS: BASOPHILS % (AUTO) 0.4 % (0-1); EOSINOPHILS # (AUTO) 0.2 X10'3 (0-0.9); EOSINOPHILS % (AUTO) 2.1 % (0-6); LYMPHOCYTES # (AUTO) 1.3 X10'3 (1.1-4.8); LYMPHOCYTES % (AUTO) 16.1 % (21-51); MEAN CORPUSCULAR HEMOGLOBIN 30.3 PG (27.0-31.0); MEAN CORPUSCULAR HGB CONC 33.9 g/dL (33.0-36.5); MEAN CORPUSCULAR VOLUME 89.4 FL (78-98); MEAN PLATELET VOLUME 7.3 FL (7.4-10.4); MONOCYTES # (AUTO) 0.8 X10'3 (0-0.9); MONOCYTES % (AUTO) 9.8 % (2-12); NEUTROPHILS # (AUTO) 5.9 X10'3 (1.8-7.7); NEUTROPHILS % (AUTO) 71.6 % (42-75); PLATELET COUNT 329 X10'3 (140-440); RED BLOOD COUNT 2.08 X10'6 (4.20-5.60); RED CELL DISTRIBUTION WIDTH 13.6 % (11.5-14.5); WHITE BLOOD COUNT 8.3 X10'3 (4.5-11.0)
[2019-06-27 05:16] LABS: HEMOGLOBIN 6.3 g/dl (12.0-16.0)
[2019-06-27 05:17] LABS: HEMATOCRIT 18.6 % (35.0-45.0)
[2019-06-27 05:33] LABS: ALANINE AMINOTRANSFERASE 16 U/L (12-78); ALBUMIN 2.3 G/DL (3.4-5.0); ALBUMIN/GLOBULIN RATIO 0.7 (1.1-1.5); ALKALINE PHOSPHATASE 70 IU/L (46-116); ANION GAP 1 (8-16); ASPARTATE AMINO TRANSFERASE 30 U/L (10-37); BILIRUBIN,TOTAL 0.7 MG/DL (0.1-1.0); BLOOD UREA NITROGEN 11 MG/DL (7-18); BUN/CREATININE RATIO 14.9 (6.6-38.0); CALCIUM 8.8 MG/DL (8.5-10.1); CHLORIDE 106 MMOL/L (99-107); CREATININE 0.74 MG/DL (0.40-0.90); GLUCOSE 99 MG/DL (70-104); PHOSPHORUS 3.3 MG/DL (2.3-4.5); POTASSIUM 3.6 MMOL/L (3.5-5.1); SODIUM 141 MMOL/L (135-145); TOTAL CARBON DIOXIDE 33.8 MMOL/L (24-32); TOTAL PROTEIN 5.8 G/DL (6.4-8.2); eGFR 79 ML/MIN
--- NOTE | 2019-06-27 06:09 | NUR ---
Problems reprioritized. Patient report given, questions answered & plan of care reviewed with Romina RAHMAN.
--- NOTE | 2019-06-27 06:30 | NUR ---
Received report from Lucila, SPED TEACHER, patient to be transferred up soon.
--- NOTE | 2019-06-27 06:38 | NUR ---
Problems reprioritized. Patient report given, questions answered & plan of care reviewed with Barbara RAHMAN on PCU whom will receive patient to room 1474H.
--- NOTE | 2019-06-27 07:05 | NUR ---
Patient arrived on unit, transferred to bed with moderate assistance, VSS, no acute distress, will continue to monitor.
[2019-06-27] MEDS: docusate sod 100mg capsule PO SCH ×2 (07:30→20:00)
[2019-06-27] MEDS: vitamin B comp w/Vit. C tab 1 TAB TABLET PO SCH (07:30)
[2019-06-27] MEDS: folic acid 1mg tablet PO SCH (07:30)
[2019-06-27] MEDS: cyanocobalamin 500mcg tablet PO SCH (07:30)
[2019-06-27] MEDS: pantoprazole 40mg Tablet.DR PO SCH (07:30)
[2019-06-27] MEDS: sodium ferric gluc complex inj 125 MG in normal saline 100ml IV soln 100 ML IV SCH ×2 (07:37→07:38)
[2019-06-27] MEDS: lactose-reduced food (Ensure High Protein) 237ml bottle PO SCH ×3 (08:00→18:00)
[2019-06-27] MEDS: NUT.TX.IMPAIRED DIGEST FXN (Ensure Clear) 237 ML PO SCH ×3 (08:00→18:00)
[2019-06-27] MEDS ORDERED: epoetin 20,000 units/ml inj SQ ONE (10:05)
[2019-06-27] MEDS: HYDROcodone/acetaminophen 10/325mg tab PO PRN (11:36)
--- NOTE | 2019-06-27 18:18 | NUR ---
Problems reprioritized. Patient report given, questions answered & plan of care reviewed with LACEY Banuelos.
--- NOTE | 2019-06-27 18:30 | NUR ---
Patient in room PCU 3027. I have received report from Barbara Castillo RN and had the opportunity to ask questions and assume patient care.
[2019-06-27] MEDS: polyethylene glycol 3350 17gm powd pack PO SCH (20:25)
[2019-06-28 02:00] VITALS: BP 133/59
[2019-06-28 06:00] VITALS: BP 148/73
--- NOTE | 2019-06-28 06:03 | NUR ---
Problems reprioritized. Patient report given, questions answered & plan of care reviewed with Barbara Castillo RN.
[2019-06-28 06:13] LABS: BASOPHILS # (AUTO) 0.1 X10'3 (0-0.2); BASOPHILS % (AUTO) 0.6 % (0-1); EOSINOPHILS # (AUTO) 0.2 X10'3 (0-0.9); EOSINOPHILS % (AUTO) 1.6 % (0-6); LYMPHOCYTES # (AUTO) 1.2 X10'3 (1.1-4.8); MEAN CORPUSCULAR HGB CONC 33.9 g/dL (33.0-36.5); MEAN CORPUSCULAR VOLUME 91.4 FL (78-98); MEAN PLATELET VOLUME 7.5 FL (7.4-10.4); MONOCYTES # (AUTO) 1.2 X10'3 (0-0.9); MONOCYTES % (AUTO) 11.2 % (2-12); NEUTROPHILS # (AUTO) 7.7 X10'3 (1.8-7.7); NEUTROPHILS % (AUTO) 74.6 % (42-75); PLATELET COUNT 349 X10'3 (140-440); RED BLOOD COUNT 2.11 X10'6 (4.20-5.60); RED CELL DISTRIBUTION WIDTH 14.1 % (11.5-14.5); WHITE BLOOD COUNT 10.3 X10'3 (4.5-11.0)
[2019-06-28 06:25] LABS: HEMOGLOBIN 6.5 g/dl (12.0-16.0)
[2019-06-28 06:26] LABS: HEMATOCRIT 19.3 % (35.0-45.0)
[2019-06-28 06:29] LABS: ALANINE AMINOTRANSFERASE 15 U/L (12-78); ALBUMIN 2.5 G/DL (3.4-5.0); ALBUMIN/GLOBULIN RATIO 0.7 (1.1-1.5); ALKALINE PHOSPHATASE 75 IU/L (46-116); ANION GAP 2 (8-16); ASPARTATE AMINO TRANSFERASE 33 U/L (10-37); BILIRUBIN,TOTAL 0.9 MG/DL (0.1-1.0); BLOOD UREA NITROGEN 9 MG/DL (7-18); CALCIUM 8.6 MG/DL (8.5-10.1); CHLORIDE 104 MMOL/L (99-107); CREATININE 0.75 MG/DL (0.40-0.90); GLUCOSE 92 MG/DL (70-104); MAGNESIUM 1.9 MG/DL (1.5-2.4); PHOSPHORUS 2.9 MG/DL (2.3-4.5); POTASSIUM 3.7 MMOL/L (3.5-5.1); SODIUM 139 MMOL/L (135-145); TOTAL CARBON DIOXIDE 33.4 MMOL/L (24-32); TOTAL PROTEIN 6.1 G/DL (6.4-8.2); eGFR 78 ML/MIN
[2019-06-28 07:20] LABS: ANISOCYTOSIS 1+; NUCLEATED RED BLOOD CELLS 3 /100WBC (0-0); PLATELET ESTIMATE NORMAL; POLYCHROMASIA 2+; TARGET CELLS FEW; TOTAL CELLS COUNTED 100
[2019-06-28] MEDS: NUT.TX.IMPAIRED DIGEST FXN (Ensure Clear) 237 ML PO SCH ×3 (08:00→18:00)
[2019-06-28] MEDS: docusate sod 100mg capsule PO SCH ×2 (08:00→20:19)
[2019-06-28] MEDS: pantoprazole 40mg Tablet.DR PO SCH (08:30)
[2019-06-28] MEDS: folic acid 1mg tablet PO SCH (08:31)
[2019-06-28] MEDS: vitamin B comp w/Vit. C tab 1 TAB TABLET PO SCH (08:31)
[2019-06-28] MEDS: ondansetron/PF 4mg/2ml inj IV PRN (08:32)
[2019-06-28] MEDS: cyanocobalamin 500mcg tablet PO SCH (08:32)
[2019-06-28] MEDS: lactose-reduced food (Ensure High Protein) 237ml bottle PO SCH ×3 (08:32→18:00)
[2019-06-28] MEDS: sodium ferric gluc complex inj 125 MG in normal saline 100ml IV soln 100 ML IV SCH ×2 (08:32→08:33)
[2019-06-28] MEDS: HYDROcodone/acetaminophen 10/325mg tab PO PRN ×2 (08:49→20:21)
[2019-06-28] MEDS ORDERED: epoetin 20,000 units/ml inj SQ ONE (10:55)
[2019-06-28 11:00] VITALS: BP 104/58
[2019-06-28] MEDS: proCHLORperazine 10 MG/2 ml inj IV PRN (12:21)
[2019-06-28 15:00] VITALS: BP 148/83
[2019-06-28 18:00] VITALS: BP 143/72
--- NOTE | 2019-06-28 18:40 | NUR ---
Problems reprioritized. Patient report given, questions answered & plan of care reviewed with LACEY Hitchcock.
--- NOTE | 2019-06-28 18:43 | NUR ---
Patient in room PCU 3027. I have received report from Barbara RAHMAN and had the opportunity to ask questions and assume patient care.
[2019-06-28] MEDS: polyethylene glycol 3350 17gm powd pack PO SCH (20:18)
[2019-06-28 22:00] VITALS: BP 136/82
[2019-06-29 02:00] VITALS: BP 127/54
[2019-06-29] MEDS: HYDROcodone/acetaminophen 10/325mg tab PO PRN ×3 (03:29→19:17)
[2019-06-29 05:24] LABS: ALANINE AMINOTRANSFERASE 17 U/L (12-78); ALBUMIN 2.5 G/DL (3.4-5.0); ALBUMIN/GLOBULIN RATIO 0.7 (1.1-1.5); ALKALINE PHOSPHATASE 71 IU/L (46-116); ANION GAP 4 (8-16); ASPARTATE AMINO TRANSFERASE 30 U/L (10-37); BLOOD UREA NITROGEN 9 MG/DL (7-18); BUN/CREATININE RATIO 12.7 (6.6-38.0); CALCIUM 8.6 MG/DL (8.5-10.1); CHLORIDE 104 MMOL/L (99-107); CREATININE 0.71 MG/DL (0.40-0.90); GLUCOSE 91 MG/DL (70-104); MAGNESIUM 2.1 MG/DL (1.5-2.4); PHOSPHORUS 3.3 MG/DL (2.3-4.5); POTASSIUM 3.6 MMOL/L (3.5-5.1); SODIUM 142 MMOL/L (135-145); TOTAL CARBON DIOXIDE 33.6 MMOL/L (24-32); TOTAL PROTEIN 6.1 G/DL (6.4-8.2); eGFR 83 ML/MIN
[2019-06-29 05:27] LABS: BASOPHILS % (AUTO) 0.4 % (0-1); EOSINOPHILS # (AUTO) 0.2 X10'3 (0-0.9); EOSINOPHILS % (AUTO) 2.2 % (0-6); LYMPHOCYTES # (AUTO) 1.6 X10'3 (1.1-4.8); LYMPHOCYTES % (AUTO) 15.4 % (21-51); MEAN CORPUSCULAR HEMOGLOBIN 30.5 PG (27.0-31.0); MEAN CORPUSCULAR HGB CONC 33.2 g/dL (33.0-36.5); MEAN CORPUSCULAR VOLUME 91.9 FL (78-98); MEAN PLATELET VOLUME 7.6 FL (7.4-10.4); MONOCYTES # (AUTO) 1.1 X10'3 (0-0.9); MONOCYTES % (AUTO) 10.9 % (2-12); NEUTROPHILS # (AUTO) 7.2 X10'3 (1.8-7.7); NEUTROPHILS % (AUTO) 71.1 % (42-75); PLATELET COUNT 364 X10'3 (140-440); RED BLOOD COUNT 2.24 X10'6 (4.20-5.60); RED CELL DISTRIBUTION WIDTH 14.1 % (11.5-14.5); WHITE BLOOD COUNT 10.1 X10'3 (4.5-11.0)
[2019-06-29 05:45] LABS: HEMOGLOBIN 6.8 g/dl (12.0-16.0)
[2019-06-29 05:46] LABS: HEMATOCRIT 20.5 % (35.0-45.0)
[2019-06-29 06:00] VITALS: BP 154/78
--- NOTE | 2019-06-29 06:32 | NUR ---
Patient in room PCU 3027. I have received report from LACEY Hitchcock and had the opportunity to ask questions and assume patient care. Patient currently resting in bed, bed locked and low, call light in reach, no acute distress, will continue to monitor.
[2019-06-29 06:53] LABS: ANISOCYTOSIS 1+; NUCLEATED RED BLOOD CELLS 1 /100WBC (0-0); PLATELET ESTIMATE NORMAL; POLYCHROMASIA 2+; TOTAL CELLS COUNTED 100
--- NOTE | 2019-06-29 06:59 | NUR ---
Problems reprioritized. Patient report given, questions answered & plan of care reviewed with Barbara RAHMAN.
[2019-06-29] MEDS: docusate sod 100mg capsule PO SCH ×2 (07:43→22:28)
[2019-06-29] MEDS: pantoprazole 40mg Tablet.DR PO SCH (07:43)
[2019-06-29] MEDS: folic acid 1mg tablet PO SCH (07:43)
[2019-06-29] MEDS: vitamin B comp w/Vit. C tab 1 TAB TABLET PO SCH (07:43)
[2019-06-29] MEDS: cyanocobalamin 500mcg tablet PO SCH (07:43)
[2019-06-29] MEDS: proCHLORperazine 10 MG/2 ml inj IV PRN ×2 (07:43→19:16)
[2019-06-29] MEDS: lactose-reduced food (Ensure High Protein) 237ml bottle PO SCH ×3 (08:00→18:00)
[2019-06-29] MEDS: NUT.TX.IMPAIRED DIGEST FXN (Ensure Clear) 237 ML PO SCH ×3 (08:00→18:00)
[2019-06-29] MEDS: sodium ferric gluc complex inj 125 MG in normal saline 100ml IV soln 100 ML IV SCH ×4 (09:25)
[2019-06-29] MEDS ORDERED: epoetin 20,000 units/ml inj SQ ONE (10:55)
[2019-06-29 11:00] VITALS: BP 156/78
[2019-06-29] MEDS ORDERED: ondansetron/PF 4mg/2ml inj IV PRN (11:30)
[2019-06-29 15:00] VITALS: BP 135/72
[2019-06-29 18:00] VITALS: BP 150/79
--- NOTE | 2019-06-29 18:01 | NUR ---
Problems reprioritized. Patient report given, questions answered & plan of care reviewed with LACEY Hitchcock.
--- NOTE | 2019-06-29 18:34 | NUR ---
Patient in room PCU 3027. I have received report from Robyn RAHMAN and had the opportunity to ask questions and assume patient care.
[2019-06-29] MEDS: polyethylene glycol 3350 17gm powd pack PO SCH (21:00)
[2019-06-29 22:00] VITALS: BP 155/86
[2019-06-30 02:00] VITALS: BP 145/67
[2019-06-30] MEDS: HYDROcodone/acetaminophen 10/325mg tab PO PRN ×3 (02:49→19:48)
[2019-06-30 05:24] LABS: BASOPHILS # (AUTO) 0.1 X10'3 (0-0.2); BASOPHILS % (AUTO) 0.6 % (0-1); EOSINOPHILS # (AUTO) 0.2 X10'3 (0-0.9); EOSINOPHILS % (AUTO) 1.8 % (0-6); HEMOGLOBIN 7.2 g/dl (12.0-16.0); LYMPHOCYTES # (AUTO) 1.6 X10'3 (1.1-4.8); LYMPHOCYTES % (AUTO) 13.8 % (21-51); MEAN CORPUSCULAR HEMOGLOBIN 30.3 PG (27.0-31.0); MEAN CORPUSCULAR HGB CONC 32.7 g/dL (33.0-36.5); MEAN CORPUSCULAR VOLUME 92.6 FL (78-98); MEAN PLATELET VOLUME 7.1 FL (7.4-10.4); MONOCYTES # (AUTO) 1.2 X10'3 (0-0.9); MONOCYTES % (AUTO) 10.2 % (2-12); NEUTROPHILS # (AUTO) 8.5 X10'3 (1.8-7.7); NEUTROPHILS % (AUTO) 73.6 % (42-75); PLATELET COUNT 372 X10'3 (140-440); RED BLOOD COUNT 2.38 X10'6 (4.20-5.60); RED CELL DISTRIBUTION WIDTH 14.7 % (11.5-14.5); WHITE BLOOD COUNT 11.6 X10'3 (4.5-11.0)
[2019-06-30 05:42] LABS: ALANINE AMINOTRANSFERASE 15 U/L (12-78); ALBUMIN 2.6 G/DL (3.4-5.0); ALBUMIN/GLOBULIN RATIO 0.7 (1.1-1.5); ALKALINE PHOSPHATASE 73 IU/L (46-116); ANION GAP 7 (8-16); ASPARTATE AMINO TRANSFERASE 36 U/L (10-37); BLOOD UREA NITROGEN 7 MG/DL (7-18); BUN/CREATININE RATIO 9.3 (6.6-38.0); CALCIUM 8.4 MG/DL (8.5-10.1); CHLORIDE 104 MMOL/L (99-107); CREATININE 0.75 MG/DL (0.40-0.90); GLUCOSE 94 MG/DL (70-104); PHOSPHORUS 3.6 MG/DL (2.3-4.5); POTASSIUM 3.8 MMOL/L (3.5-5.1); SODIUM 141 MMOL/L (135-145); TOTAL PROTEIN 6.4 G/DL (6.4-8.2); eGFR 78 ML/MIN
[2019-06-30 06:00] VITALS: BP 138/68
--- NOTE | 2019-06-30 07:01 | NUR ---
Problems reprioritized. Patient report given, questions answered & plan of care reviewed with Ade RAHMAN.
--- NOTE | 2019-06-30 07:15 | NUR ---
Patient in room PCU 3027. I have received report from LACEY CHRISTIE and had the opportunity to ask questions and assume patient care.
[2019-06-30] MEDS: NUT.TX.IMPAIRED DIGEST FXN (Ensure Clear) 237 ML PO SCH ×3 (08:00→17:59)
[2019-06-30] MEDS: lactose-reduced food (Ensure High Protein) 237ml bottle PO SCH ×3 (08:00→17:59)
[2019-06-30] MEDS: ondansetron/PF 4mg/2ml inj IV PRN ×2 (08:01→18:37)
[2019-06-30] MEDS: sodium ferric gluc complex inj 125 MG in normal saline 100ml IV soln 100 ML IV SCH ×2 (08:12→09:59)
--- NOTE | 2019-06-30 08:18 | NUR ---
pt wants to wait on am meds until nausea better and able to eat this am
[2019-06-30] MEDS: pantoprazole 40 MG vial IV SCH ×2 (10:46→19:39)
[2019-06-30] MEDS ORDERED: epoetin 20,000 units/ml inj SQ ONE (10:55)
[2019-06-30 11:00] VITALS: BP 143/56
[2019-06-30 12:53] LABS: H PYLORI ANTIBODY NEGATIVE (Neg)
[2019-06-30] MEDS: docusate sod 100mg capsule PO SCH ×2 (13:13→19:39)
[2019-06-30] MEDS: vitamin B comp w/Vit. C tab 1 TAB TABLET PO SCH (13:13)
[2019-06-30] MEDS: cyanocobalamin 500mcg tablet PO SCH (13:13)
[2019-06-30] MEDS: folic acid 1mg tablet PO SCH (13:14)
--- NOTE | 2019-06-30 13:57 | NUR ---
Reassessment: Pt advanced to regular diet PO fluctuates roughly 50% avg meals decreased to to 0-25% this AM. Refused ensure high protein as well this AM. Persistent nausea/abdominal pain per TICKETING AGENT note pending H. pylori results; nausea improving at this time per TICKETING AGENT. Retroperitoneal bleed stable per MD; refusing blood products per mu-ism preferences receiving multivitamin/mineral supplementation. LBM 06/28 receiving routine colace. Will continue to monitor for PO diet tolerance and additional protein needs. Rec: 1. continue regualr diet per MD; encourage PO 2. ensure high protein TIDWM 3. routine bowel care 4. wt per rx Addendum: 06/30/19 at [address] Amended: Links added. Addendum: 06/30/19 at [address] CORRECTION: Rec: 1. continue regular diet per MD; encourage PO
[2019-06-30 15:00] VITALS: BP 122/62
[2019-06-30 18:00] VITALS: BP 139/62
--- NOTE | 2019-06-30 18:24 | NUR ---
Problems reprioritized. Patient report given, questions answered & plan of care reviewed with LACEY MARCUM.
--- NOTE | 2019-06-30 18:27 | NUR ---
Patient in room PCU 3025H. I have received report from LACEY Booker and had the opportunity to ask questions and assume patient care. Patient sitting in chair for bedside report. On room air and saline locked. Will continue to monitor closely.
[2019-06-30 23:00] VITALS: BP 121/64
[2019-07-01 03:00] VITALS: BP 146/74
--- NOTE | 2019-07-01 06:00 | NUR ---
Patient in room U 3027. I have received report from Shakir RAHMAN and had the opportunity to ask questions and assume patient care. Patient lying in bed. Patient is awake, oriented, and stable at this time.
[2019-07-01 06:02] LABS: BASOPHILS # (AUTO) 0.1 X10'3 (0-0.2); BASOPHILS % (AUTO) 0.5 % (0-1); EOSINOPHILS # (AUTO) 0.3 X10'3 (0-0.9); EOSINOPHILS % (AUTO) 2.4 % (0-6); HEMOGLOBIN 7.3 g/dl (12.0-16.0); LYMPHOCYTES # (AUTO) 1.3 X10'3 (1.1-4.8); LYMPHOCYTES % (AUTO) 12.4 % (21-51); MEAN CORPUSCULAR HEMOGLOBIN 31.2 PG (27.0-31.0); MEAN CORPUSCULAR HGB CONC 33.4 g/dL (33.0-36.5); MEAN CORPUSCULAR VOLUME 93.4 FL (78-98); MEAN PLATELET VOLUME 7.7 FL (7.4-10.4); MONOCYTES % (AUTO) 9.5 % (2-12); NEUTROPHILS # (AUTO) 8.1 X10'3 (1.8-7.7); NEUTROPHILS % (AUTO) 75.2 % (42-75); PLATELET COUNT 357 X10'3 (140-440); RED BLOOD COUNT 2.33 X10'6 (4.20-5.60); RED CELL DISTRIBUTION WIDTH 15.7 % (11.5-14.5); WHITE BLOOD COUNT 10.7 X10'3 (4.5-11.0)
[2019-07-01 06:15] LABS: HEMATOCRIT 21.8 % (35.0-45.0)
[2019-07-01 06:20] LABS: ALANINE AMINOTRANSFERASE 18 U/L (12-78); ALBUMIN 2.6 G/DL (3.4-5.0); ALBUMIN/GLOBULIN RATIO 0.7 (1.1-1.5); ALKALINE PHOSPHATASE 75 IU/L (46-116); ANION GAP 8 (8-16); ASPARTATE AMINO TRANSFERASE 37 U/L (10-37); BLOOD UREA NITROGEN 10 MG/DL (7-18); BUN/CREATININE RATIO 12.2 (6.6-38.0); CALCIUM 8.8 MG/DL (8.5-10.1); CHLORIDE 103 MMOL/L (99-107); CREATININE 0.82 MG/DL (0.40-0.90); GLUCOSE 79 MG/DL (70-104); MAGNESIUM 2.1 MG/DL (1.5-2.4); PHOSPHORUS 3.8 MG/DL (2.3-4.5); POTASSIUM 3.5 MMOL/L (3.5-5.1); SODIUM 139 MMOL/L (135-145); TOTAL CARBON DIOXIDE 28.4 MMOL/L (24-32); TOTAL PROTEIN 6.4 G/DL (6.4-8.2); eGFR 70 ML/MIN
--- NOTE | 2019-07-01 06:30 | NUR ---
Patient in room PCU 3027. I have received report from Shakir RAHMAN and had the opportunity to ask questions and assume patient care. Patient awake and oriented in bed at this time, offers no complaints, said it was a "Loud" night. Will continue to monitor.
--- NOTE | 2019-07-01 06:36 | NUR ---
Problems reprioritized. Patient report given, questions answered & plan of care reviewed with LACEY HINES AND LACEY HUMPHREY.
[2019-07-01 07:00] VITALS: BP 130/60
[2019-07-01] MEDS: lactose-reduced food (Ensure High Protein) 237ml bottle PO SCH ×3 (08:00→18:00)
[2019-07-01] MEDS: sodium ferric gluc complex inj 125 MG in normal saline 100ml IV soln 100 ML IV SCH (08:00)
[2019-07-01] MEDS: NUT.TX.IMPAIRED DIGEST FXN (Ensure Clear) 237 ML PO SCH ×3 (08:00→18:00)
[2019-07-01] MEDS: docusate sod 100mg capsule PO SCH ×2 (08:39→20:00)
[2019-07-01] MEDS: pantoprazole 40 MG vial IV SCH ×2 (08:39→20:16)
[2019-07-01] MEDS: folic acid 1mg tablet PO SCH (08:39)
[2019-07-01] MEDS: HYDROcodone/acetaminophen 10/325mg tab PO PRN ×2 (08:42→20:17)
--- NOTE | 2019-07-01 09:32 | NUR ---
Patients PIV in hand was infiltrated. Patient states she did not want another IV placed. She states she is ok with not getting anymore IV meds. I called Dr. Luo to notify him that she did not want another IV placed and he said it was ok not to place a new IV.
--- NOTE | 2019-07-01 09:45 | NUR ---
PIV was removed from right hand. Cannula intact. warm compress applied.
[2019-07-01 11:00] VITALS: BP 142/60
[2019-07-01] MEDS ORDERED: carVEDilol 3.125mg tablet PO SCH (12:15)
[2019-07-01] MEDS: cyanocobalamin 500mcg tablet PO SCH (13:48)
[2019-07-01] MEDS: vitamin B comp w/Vit. C tab 1 TAB TABLET PO SCH (13:48)
[2019-07-01 15:00] VITALS: BP 103/44
[2019-07-01] MEDS ORDERED: CYAN500T63 PO (15:09)
[2019-07-01] MEDS ORDERED: VITA1TAB15 PO (15:09)
[2019-07-01] MEDS ORDERED: folic acid tablet PO (15:09)
--- NOTE | 2019-07-01 16:07 | NUR ---
Rm [id number], Torsten. Could you please call me about her home health RN. Thank you.
[2019-07-01] MEDS ORDERED: epoetin 20,000 units/ml inj SQ ONE (17:00)
--- NOTE | 2019-07-01 18:00 | NUR ---
Problems reprioritized. Patient report given, questions answered & plan of care reviewed with Shakir RN[]. Patient resting comfortably in bed. Patient awake, oriented,and stable.
[2019-07-01 18:50] VITALS: BP 118/59
--- NOTE | 2019-07-01 18:55 | NUR ---
Patient in room PCU 9462Q. I have received report from LACEY HINES AND LACEY HUMPHREY and had the opportunity to ask questions and assume patient care. PATIENT UTILIZING RESTROOM AT TIME OF REPORT. WILL CONTINUE TO MONITOR CLOSELY.
[2019-07-01 23:00] VITALS: BP 121/54
[2019-07-02 03:00] VITALS: BP 149/85
[2019-07-02] MEDS: HYDROcodone/acetaminophen 10/325mg tab PO PRN ×2 (03:00→21:00)
[2019-07-02 05:16] LABS: BASOPHILS % (AUTO) 0.4 % (0-1); EOSINOPHILS # (AUTO) 0.2 X10'3 (0-0.9); EOSINOPHILS % (AUTO) 1.4 % (0-6); HEMATOCRIT 22.2 % (35.0-45.0); HEMOGLOBIN 7.3 g/dl (12.0-16.0); LYMPHOCYTES # (AUTO) 1.2 X10'3 (1.1-4.8); LYMPHOCYTES % (AUTO) 10.5 % (21-51); MEAN CORPUSCULAR HEMOGLOBIN 31.6 PG (27.0-31.0); MEAN CORPUSCULAR VOLUME 95.7 FL (78-98); MEAN PLATELET VOLUME 7.6 FL (7.4-10.4); MONOCYTES # (AUTO) 0.9 X10'3 (0-0.9); MONOCYTES % (AUTO) 7.7 % (2-12); NEUTROPHILS # (AUTO) 9.2 X10'3 (1.8-7.7); PLATELET COUNT 361 X10'3 (140-440); RED BLOOD COUNT 2.32 X10'6 (4.20-5.60); RED CELL DISTRIBUTION WIDTH 15.7 % (11.5-14.5); WHITE BLOOD COUNT 11.5 X10'3 (4.5-11.0)
[2019-07-02 05:29] LABS: ALANINE AMINOTRANSFERASE 18 U/L (12-78); ALBUMIN 2.6 G/DL (3.4-5.0); ALBUMIN/GLOBULIN RATIO 0.6 (1.1-1.5); ALKALINE PHOSPHATASE 76 IU/L (46-116); ANION GAP 4 (8-16); ASPARTATE AMINO TRANSFERASE 36 U/L (10-37); BLOOD UREA NITROGEN 8 MG/DL (7-18); CALCIUM 8.7 MG/DL (8.5-10.1); CHLORIDE 103 MMOL/L (99-107); CREATININE 0.89 MG/DL (0.40-0.90); GLUCOSE 98 MG/DL (70-104); MAGNESIUM 1.9 MG/DL (1.5-2.4); PHOSPHORUS 3.2 MG/DL (2.3-4.5); POTASSIUM 3.5 MMOL/L (3.5-5.1); SODIUM 137 MMOL/L (135-145); TOTAL CARBON DIOXIDE 30.1 MMOL/L (24-32); TOTAL PROTEIN 6.9 G/DL (6.4-8.2); eGFR 64 ML/MIN
[2019-07-02 06:15] VITALS: BP 129/68
--- NOTE | 2019-07-02 06:33 | NUR ---
Problems reprioritized. Patient report given, questions answered & plan of care reviewed with LACEY OLIVO.
[2019-07-02] MEDS: lactose-reduced food (Ensure High Protein) 237ml bottle PO SCH ×3 (08:00→17:58)
[2019-07-02] MEDS: NUT.TX.IMPAIRED DIGEST FXN (Ensure Clear) 237 ML PO SCH ×3 (08:00→17:58)
[2019-07-02] MEDS: docusate sod 100mg capsule PO SCH ×2 (08:00→20:59)
[2019-07-02] MEDS: folic acid 1mg tablet PO SCH (08:00)
[2019-07-02] MEDS: ondansetron 4mg rapidly disintigrating tab PO PRN ×2 (08:24→18:32)
[2019-07-02] MEDS: pantoprazole 40mg Tablet.DR PO SCH ×2 (08:24→20:59)
[2019-07-02] MEDS ORDERED: epoetin 20,000 units/ml inj SQ ONE (10:00)
[2019-07-02 11:00] VITALS: BP 113/49
[2019-07-02] MEDS: cyanocobalamin 500mcg tablet PO SCH (13:14)
[2019-07-02] MEDS: vitamin B comp w/Vit. C tab 1 TAB TABLET PO SCH (13:14)
[2019-07-02 15:00] VITALS: BP 113/54
--- NOTE | 2019-07-02 18:26 | NUR ---
Problems reprioritized. Patient report given, questions answered & plan of care reviewed with LACEY Torres.
[2019-07-02 19:00] VITALS: BP 127/63
[2019-07-02 23:00] VITALS: BP 107/61
[2019-07-03 03:00] VITALS: BP 120/64
[2019-07-03 05:19] LABS: BASOPHILS % (AUTO) 0.3 % (0-1); EOSINOPHILS # (AUTO) 0.1 X10'3 (0-0.9); HEMATOCRIT 24.3 % (35.0-45.0); HEMOGLOBIN 7.9 g/dl (12.0-16.0); LYMPHOCYTES # (AUTO) 1.5 X10'3 (1.1-4.8); LYMPHOCYTES % (AUTO) 12.8 % (21-51); MEAN CORPUSCULAR HEMOGLOBIN 31.4 PG (27.0-31.0); MEAN CORPUSCULAR HGB CONC 32.7 g/dL (33.0-36.5); MEAN CORPUSCULAR VOLUME 96.2 FL (78-98); MEAN PLATELET VOLUME 7.8 FL (7.4-10.4); NEUTROPHILS # (AUTO) 9.3 X10'3 (1.8-7.7); NEUTROPHILS % (AUTO) 77.9 % (42-75); PLATELET COUNT 384 X10'3 (140-440); RED BLOOD COUNT 2.52 X10'6 (4.20-5.60); RED CELL DISTRIBUTION WIDTH 21.6 % (11.5-14.5)
[2019-07-03 05:34] LABS: ALANINE AMINOTRANSFERASE 30 U/L (12-78); ALBUMIN 2.6 G/DL (3.4-5.0); ALBUMIN/GLOBULIN RATIO 0.7 (1.1-1.5); ALKALINE PHOSPHATASE 85 IU/L (46-116); ANION GAP 3 (8-16); ASPARTATE AMINO TRANSFERASE 40 U/L (10-37); BILIRUBIN,TOTAL 0.9 MG/DL (0.1-1.0); BLOOD UREA NITROGEN 10 MG/DL (7-18); BUN/CREATININE RATIO 12.5 (6.6-38.0); CHLORIDE 104 MMOL/L (99-107); GLUCOSE 84 MG/DL (70-104); PHOSPHORUS 3.6 MG/DL (2.3-4.5); POTASSIUM 3.6 MMOL/L (3.5-5.1); SODIUM 137 MMOL/L (135-145); TOTAL CARBON DIOXIDE 29.8 MMOL/L (24-32); TOTAL PROTEIN 6.6 G/DL (6.4-8.2); eGFR 72 ML/MIN
--- NOTE | 2019-07-03 06:27 | NUR ---
Patient in room PCU 3027. I have received report from Shakir RAHMAN and had the opportunity to ask questions and assume patient care.
--- NOTE | 2019-07-03 06:27 | NUR ---
Problems reprioritized. Patient report given, questions answered & plan of care reviewed with LACEY SANDOVAL.
[2019-07-03 06:34] LABS: PLATELET ESTIMATE NORMAL
[2019-07-03 06:35] LABS: ANISOCYTOSIS 3+
[2019-07-03 06:36] LABS: POLYCHROMASIA 2+
[2019-07-03 07:00] VITALS: BP 126/54
[2019-07-03] MEDS: NUT.TX.IMPAIRED DIGEST FXN (Ensure Clear) 237 ML PO SCH ×2 (08:00→13:06)
[2019-07-03] MEDS: lactose-reduced food (Ensure High Protein) 237ml bottle PO SCH ×2 (08:00→13:06)
[2019-07-03 11:00] VITALS: BP 119/55
[2019-07-03] MEDS: folic acid 1mg tablet PO SCH (11:13)
[2019-07-03] MEDS: ondansetron 4mg rapidly disintigrating tab PO PRN (11:13)
[2019-07-03] MEDS: docusate sod 100mg capsule PO SCH (11:13)
[2019-07-03] MEDS: pantoprazole 40mg Tablet.DR PO SCH (11:13)
[2019-07-03] MEDS ORDERED: epoetin 20,000 units/ml inj SQ ONE (11:25)
[2019-07-03 15:00] VITALS: BP 113/54
--- NOTE | 2019-07-03 16:34 | NUR ---
Patient stable for discharge per MD order. Primary RN spoke to BRANDI Mendez who confirmed home health has been set up for patient. All discharge information and education reviewed with patient before signing necessary paperwork. No IV to remove, equipment monitor phototypesetting removed and returned, and all patient belongings packed up and sent with her. Patient's picked her up in a private vehicle. Addendum: 07/03/19 at 1658 by Lisha Guzman RN New prescriptions called in to [facility] on [address]
== END 2019-07-03 16:12 | disposition home health service (06) | DRG 270 ==
LOC: ER 14:48 → ED HOLD 17:48 → ICU 2S 19:27 → PCU 3S 06-27 07:08
PROVIDERS: ADMIT Internal Medicine Critical Care Medicine; ATTEND Internal Medicine Critical Care Medicine
PROC: 04LA3DZ Occlusion of Left Renal Artery with Intraluminal Device, Percutaneous Approach (ICD-10-PCS; principal; 2019-06-20)
PROC: B41F1ZZ Fluoroscopy of Right Lower Extremity Arteries using Low Osmolar Contrast (ICD-10-PCS; 2019-06-20)
PROC: B4171ZZ Fluoroscopy of Left Renal Artery using Low Osmolar Contrast (ICD-10-PCS; 2019-06-20)
PROC: 04LA3DZ Occlusion of Left Renal Artery with Intraluminal Device, Percutaneous Approach (ICD-10-PCS; 2019-06-21)
PROC: B41F1ZZ Fluoroscopy of Right Lower Extremity Arteries using Low Osmolar Contrast (ICD-10-PCS; 2019-06-21)
PROC: B4171ZZ Fluoroscopy of Left Renal Artery using Low Osmolar Contrast (ICD-10-PCS; 2019-06-21)
DX: R58 Hemorrhage, not elsewhere classified (principal); K66.1 Hemoperitoneum; C92.00 Acute myeloblastic leukemia, not having achieved remission; D17.71 Benign lipomatous neoplasm of kidney; I95.9 Hypotension, unspecified; M54.9 Dorsalgia, unspecified; R00.0 Tachycardia, unspecified; Z90.710 Acquired absence of both cervix and uterus
CPT/HCPCS: 36253; 37244; 99291; G0269; 36415; 36600; 74176; 76937; 80053; 81001; 82728; 82803; 82948; 83540; 83550; 83690; 83735; 84100; 84145; 84484; 85018; 85025; 85027; 85045; 85610; 85730; 86677; 86885; 86900; 86901; 87040; 87081; 87088; 93005; 97110; 97116; 97162; 97530; 99152; 99153; C1729; C1760; C1769; C1894; C9113; G0378; J0780; J1170; J1644; J2250; J2270; J2405; J2597; J2916; J3010; J7030; Q4081; Q9967

== ENCOUNTER 2019-07-22 16:43 | Inpatient (IN) | payer BC ==
[~2019-07-22] VITALS: Ht 160 cm; Wt 77.2 kg
[~2019-07-22 16:43] MED LIST: CHOL100017 PO; CYAN500T63 PO; VITA1TAB15 PO; folic acid tablet PO
--- NOTE | 2019-07-22 17:34 | NUR ---
Pt will not accept any blood products as she is [employer].
[2019-07-22] MEDS ORDERED: LIDOcaine 1% W/epiNEPHrine 1:100,000 20ml vial SQ ONE (18:00)
[2019-07-22 18:06] LABS: BASOPHILS # (AUTO) 0.1 X10'3 (0-0.2); BASOPHILS % (AUTO) 0.9 % (0-1); EOSINOPHILS # (AUTO) 0.1 X10'3 (0-0.9); EOSINOPHILS % (AUTO) 2.1 % (0-6); HEMATOCRIT 35.9 % (35.0-45.0); HEMOGLOBIN 11.9 g/dl (12.0-16.0); LYMPHOCYTES # (AUTO) 1.1 X10'3 (1.1-4.8); LYMPHOCYTES % (AUTO) 16.4 % (21-51); MEAN CORPUSCULAR HEMOGLOBIN 30.7 PG (27.0-31.0); MEAN CORPUSCULAR HGB CONC 33.1 g/dL (33.0-36.5); MEAN CORPUSCULAR VOLUME 92.8 FL (78-98); MEAN PLATELET VOLUME 7.2 FL (7.4-10.4); MONOCYTES # (AUTO) 0.6 X10'3 (0-0.9); MONOCYTES % (AUTO) 8.5 % (2-12); NEUTROPHILS # (AUTO) 4.9 X10'3 (1.8-7.7); NEUTROPHILS % (AUTO) 72.1 % (42-75); PLATELET COUNT 446 X10'3 (140-440); RED BLOOD COUNT 3.87 X10'6 (4.20-5.60); RED CELL DISTRIBUTION WIDTH 17.8 % (11.5-14.5); WHITE BLOOD COUNT 6.8 X10'3 (4.5-11.0)
[2019-07-22 18:18] LABS: D-DIMER 1.77 MG/L FEU (0-0.50); PARTIAL THROMBOPLASTIN TIME 31 SECONDS (22-32)
[2019-07-22 18:38] LABS: ALANINE AMINOTRANSFERASE 12 U/L (12-78); ALBUMIN 3.1 G/DL (3.4-5.0); ALBUMIN/GLOBULIN RATIO 0.7 (1.1-1.5); ALKALINE PHOSPHATASE 78 IU/L (46-116); ANION GAP 10 (8-16); ASPARTATE AMINO TRANSFERASE 18 U/L (10-37); BILIRUBIN,TOTAL 0.4 MG/DL (0.1-1.0); BLOOD UREA NITROGEN 17 MG/DL (7-18); BUN/CREATININE RATIO 20.7 (6.6-38.0); CALCIUM 10.5 MG/DL (8.5-10.1); CHLORIDE 102 MMOL/L (99-107); CREATININE 0.82 MG/DL (0.40-0.90); GLUCOSE 103 MG/DL (70-104); POTASSIUM 4.3 MMOL/L (3.5-5.1); SODIUM 139 MMOL/L (135-145); TOTAL CARBON DIOXIDE 27.5 MMOL/L (24-32); TOTAL PROTEIN 7.7 G/DL (6.4-8.2); eGFR 70 ML/MIN
--- NOTE | 2019-07-22 19:08 | NUR ---
dr. richard and kelly baeza, at bedside to consent pt. consent signed with my witness. They are now starting L Sided Thoracentisis. HR 141, otherwise vss. RA Sats 98%.
[2019-07-22] MEDS ORDERED: fentaNYL/PF 50MCG/1 ML 2ML syringe IV ONE (19:15)
[2019-07-22] MEDS ORDERED: iohexol 350MG/ML 100ml bottle IV ONE (19:32)
--- NOTE | 2019-07-22 19:43 | NUR ---
PT TO CT. REPORTS SOME MILD LEFT SIDED CP WITH INSPIRATION. DR. ALVAREZFS AWARE. PT REPROTS NO NEED FOR PAIN MEDS AT THIS TIME. MD ANTICIPATES PT TO BE ADMITTED.
[2019-07-22 20:15] LABS: BFSOURCE LEFT PLEURAL FLD; PLEURAL FLUID PH 7.449 (7.63-7.65)
[2019-07-22] MEDS ORDERED: FERR-119 PO (20:16)
[2019-07-22] MEDS: morphine 4 MG/ML inj SYRINge IV PRN ×2 (20:21→21:53)
[2019-07-22] MEDS ORDERED: normal saline 1000ML IV soln IVB ONE (20:40)
[2019-07-22] MEDS ORDERED: diltiazem 5mg/ml 5ml inj. IV ONE ×2 (20:45→21:05)
[2019-07-22 20:55] LABS: GLUCOSE,BODY FLUID 103 MG/DL; LDH,BODY FLUID 232 U/L; TOTAL PROTEIN,BODY FLUID 5.1 G/DL
[2019-07-22 21:34] LABS: BFAPPEAR BLOODY; BFCOLOR RED
[2019-07-22 21:35] LABS: BASOPHILS,BODY FLUID 1 %; BFVOLUME 56 ML; EOSINOPHILS,BODY FLUID 1 %
--- NOTE | 2019-07-22 21:58 | NUR ---
DR. BLOCK AT BEDSIDE ASSESSING PATIENT FOR ADMISSIOM
[2019-07-22] MEDS ORDERED: FOLI0.4T14 PO (22:20)
[2019-07-22] MEDS ORDERED: CYAN500T63 PO (22:20)
[2019-07-22] MEDS ORDERED: potassium CL 10mEq/100ml bag 100 ML IV PRN ×2 (22:30)
[2019-07-22] MEDS ORDERED: potassium Cl 20 mEq SR tablet PO PRN ×2 (22:30)
[2019-07-22] MEDS ORDERED: magnesium 2GM in 50ml NS 50 ML IV PRN (22:30)
[2019-07-22] MEDS ORDERED: magnesium 4gm in 100ml NS 100 ML IV PRN (22:30)
[2019-07-22] MEDS ORDERED: magnesium hydroxide 30ml (MOM) UD suspension PO PRN (22:30)
[2019-07-22] MEDS ORDERED: acetaminophen 325mg tablet PO PRN (22:30)
--- NOTE | 2019-07-22 23:43 | NUR ---
PATIENT SABA DUNHAM,CELL PHONE AND PARTS ORDER AND STOCK CLERK,LUKAS RODRIGUEZ BRA JACKIE BOBBIN WINDER REPORT NO QUESTIONS OR CONCERNS AFTER ASSUMING CARE.
[2019-07-22 23:55] VITALS: BP 116/51
[2019-07-23 03:00] VITALS: BP 147/50
[2019-07-23 05:55] LABS: BASOPHILS # (AUTO) 0.1 X10'3 (0-0.2); BASOPHILS % (AUTO) 0.9 % (0-1); EOSINOPHILS # (AUTO) 0.1 X10'3 (0-0.9); EOSINOPHILS % (AUTO) 1.2 % (0-6); HEMATOCRIT 38.3 % (35.0-45.0); HEMOGLOBIN 12.7 g/dl (12.0-16.0); LYMPHOCYTES # (AUTO) 1.1 X10'3 (1.1-4.8); LYMPHOCYTES % (AUTO) 15.1 % (21-51); MEAN CORPUSCULAR HEMOGLOBIN 30.5 PG (27.0-31.0); MEAN CORPUSCULAR HGB CONC 33.1 g/dL (33.0-36.5); MEAN PLATELET VOLUME 7.3 FL (7.4-10.4); MONOCYTES # (AUTO) 0.5 X10'3 (0-0.9); MONOCYTES % (AUTO) 6.4 % (2-12); NEUTROPHILS # (AUTO) 5.8 X10'3 (1.8-7.7); NEUTROPHILS % (AUTO) 76.4 % (42-75); PLATELET COUNT 410 X10'3 (140-440); RED BLOOD COUNT 4.16 X10'6 (4.20-5.60); RED CELL DISTRIBUTION WIDTH 17.8 % (11.5-14.5); WHITE BLOOD COUNT 7.6 X10'3 (4.5-11.0)
[2019-07-23 06:00] VITALS: BP 106/56
[2019-07-23 06:04] LABS: ALANINE AMINOTRANSFERASE 12 U/L (12-78); ALBUMIN 2.9 G/DL (3.4-5.0); ALBUMIN/GLOBULIN RATIO 0.7 (1.1-1.5); ALKALINE PHOSPHATASE 72 IU/L (46-116); ANION GAP 6 (8-16); ASPARTATE AMINO TRANSFERASE 17 U/L (10-37); BILIRUBIN,TOTAL 0.4 MG/DL (0.1-1.0); BLOOD UREA NITROGEN 13 MG/DL (7-18); BUN/CREATININE RATIO 17.1 (6.6-38.0); CALCIUM 9.2 MG/DL (8.5-10.1); CHLORIDE 104 MMOL/L (99-107); CREATININE 0.76 MG/DL (0.40-0.90); GLUCOSE 95 MG/DL (70-104); POTASSIUM 4.1 MMOL/L (3.5-5.1); SODIUM 138 MMOL/L (135-145); TOTAL CARBON DIOXIDE 28.3 MMOL/L (24-32); TOTAL PROTEIN 7.3 G/DL (6.4-8.2); eGFR 77 ML/MIN
[2019-07-23 06:08] LABS: MAGNESIUM 2.1 MG/DL (1.5-2.4)
--- NOTE | 2019-07-23 06:27 | NUR ---
Problems reprioritized. Patient report given, questions answered & plan of care reviewed with LACEY GARDNER.
[2019-07-23] MEDS: vitamin D (cholecalciferol) 1,000 unit tablet PO SCH (07:53)
[2019-07-23] MEDS: ferrous sulfate 325mg tablet PO SCH (07:53)
[2019-07-23] MEDS: ondansetron/PF 4mg/2ml inj IV PRN (07:54)
[2019-07-23] MEDS: folic acid 0.4mg tablet PO SCH (07:54)
[2019-07-23] MEDS: cyanocobalamin 500mcg tablet PO SCH (07:54)
[2019-07-23] MEDS: K and/or MAG REPLACEMENT MC SCH ×2 (07:58→19:17)
[2019-07-23 10:50] LABS: BF WBC COUNT 2350 /CU MM (0-1000)
[2019-07-23 10:51] LABS: BF RBC COUNT 22500 /CU MM
[2019-07-23 10:55] LABS: BF MESOTHELIAL CELLS FEW
[2019-07-23 10:56] LABS: LYMPHOCYTES,BODY FLUID 52 %; MONOCYTES,BODY FLUID 5 %; NEUTROPHILS,BODY FLUID 41 %
[2019-07-23 11:00] VITALS: BP 134/67
[2019-07-23] MEDS ORDERED: vitamin B comp w/Vit. C tab 1 TAB TABLET PO SCH (13:00)
[2019-07-23 15:00] VITALS: BP 114/64
--- NOTE | 2019-07-23 18:18 | NUR ---
Patient in room PCU 3028O. I have received report from LACEY GARDNER and had the opportunity to ask questions and assume patient care.
[2019-07-23 19:06] VITALS: BP 121/68
[2019-07-23 23:00] VITALS: BP 136/67
[2019-07-23] MEDS ORDERED: HYDROcodone/acetaminophen 5mg/325mg tablet PO PRN (23:40)
[2019-07-24 03:00] VITALS: BP 109/55
[2019-07-24 06:00] VITALS: BP 109/59
--- NOTE | 2019-07-24 06:19 | NUR ---
Patient in room PCU 3026. I have received report from LACEY Schilling and had the opportunity to ask questions and assume patient care.
[2019-07-24 06:23] LABS: BASOPHILS # (AUTO) 0.1 X10'3 (0-0.2); BASOPHILS % (AUTO) 1.1 % (0-1); EOSINOPHILS # (AUTO) 0.4 X10'3 (0-0.9); EOSINOPHILS % (AUTO) 6.2 % (0-6); HEMATOCRIT 36.6 % (35.0-45.0); HEMOGLOBIN 11.9 g/dl (12.0-16.0); LYMPHOCYTES # (AUTO) 1.3 X10'3 (1.1-4.8); LYMPHOCYTES % (AUTO) 22.5 % (21-51); MEAN CORPUSCULAR HGB CONC 32.6 g/dL (33.0-36.5); MEAN PLATELET VOLUME 7.6 FL (7.4-10.4); MONOCYTES # (AUTO) 0.5 X10'3 (0-0.9); MONOCYTES % (AUTO) 8.6 % (2-12); NEUTROPHILS # (AUTO) 3.7 X10'3 (1.8-7.7); NEUTROPHILS % (AUTO) 61.6 % (42-75); PLATELET COUNT 417 X10'3 (140-440); RED BLOOD COUNT 3.97 X10'6 (4.20-5.60); RED CELL DISTRIBUTION WIDTH 17.6 % (11.5-14.5)
[2019-07-24 06:30] LABS: ALANINE AMINOTRANSFERASE 11 U/L (12-78); ALBUMIN 2.6 G/DL (3.4-5.0); ALBUMIN/GLOBULIN RATIO 0.7 (1.1-1.5); ALKALINE PHOSPHATASE 65 IU/L (46-116); ANION GAP 5 (8-16); ASPARTATE AMINO TRANSFERASE 15 U/L (10-37); BILIRUBIN,TOTAL 0.3 MG/DL (0.1-1.0); BLOOD UREA NITROGEN 10 MG/DL (7-18); BUN/CREATININE RATIO 12.8 (6.6-38.0); CALCIUM 8.8 MG/DL (8.5-10.1); CHLORIDE 104 MMOL/L (99-107); CREATININE 0.78 MG/DL (0.40-0.90); GLUCOSE 83 MG/DL (70-104); SODIUM 139 MMOL/L (135-145); TOTAL CARBON DIOXIDE 29.9 MMOL/L (24-32); TOTAL PROTEIN 6.6 G/DL (6.4-8.2); eGFR 74 ML/MIN
--- NOTE | 2019-07-24 06:33 | NUR ---
Problems reprioritized. Patient report given, questions answered & plan of care reviewed with LACEY GALLARDO.
[2019-07-24] MEDS: ondansetron/PF 4mg/2ml inj IV PRN (08:00)
[2019-07-24] MEDS: folic acid 0.4mg tablet PO SCH (08:04)
[2019-07-24] MEDS: vitamin D (cholecalciferol) 1,000 unit tablet PO SCH (08:05)
[2019-07-24] MEDS: cyanocobalamin 500mcg tablet PO SCH (08:05)
[2019-07-24] MEDS: K and/or MAG REPLACEMENT MC SCH (08:06)
[2019-07-24] MEDS: ferrous sulfate 325mg tablet PO SCH (08:06)
[2019-07-24 11:00] VITALS: BP 112/60
--- NOTE | 2019-07-24 11:35 | NUR ---
Patient is discharge. All discharge instructions given to patient both written and verbally. Patient states that all questions are answered and she states understanding. I removed the PIV from the patients right AC. Catheter was intact, patient tolerated and hemostasis achieved. Patient gathered all personal items and reported that she had all items. Patient left in w/c with the community aide. She was alert and oriented and in a stable condition.
== END 2019-07-24 11:35 | disposition home or self-care (01) | DRG 187 ==
LOC: ER 16:43 → ED HOLD 22:29 → UNDOADMIN 22:50 → ED HOLD 22:50 → PCU 3S 23:35 → ED HOLD 23:35
PROVIDERS: ADMIT Internal Medicine; ATTEND Internal Medicine
PROC: B32T1ZZ Computerized Tomography (CT Scan) of Left Pulmonary Artery using Low Osmolar Contrast (ICD-10-PCS; principal; 2019-07-22)
PROC: B32S1ZZ Computerized Tomography (CT Scan) of Right Pulmonary Artery using Low Osmolar Contrast (ICD-10-PCS; 2019-07-22)
DX: J94.2 Hemothorax (principal); I31.3 Pericardial effusion (noninflammatory); D64.9 Anemia, unspecified; D17.9 Benign lipomatous neoplasm, unspecified; J90 Pleural effusion, not elsewhere classified; Z80.3 Family history of malignant neoplasm of breast; Z80.52 Family history of malignant neoplasm of bladder; Z80.6 Family history of leukemia; Z82.3 Family history of stroke; Z90.710 Acquired absence of both cervix and uterus; Z90.721 Acquired absence of ovaries, unilateral
CPT/HCPCS: 36415; 71045; 71046; 71275; 80053; 82945; 83615; 83735; 83880; 83986; 84145; 84157; 84443; 84484; 85025; 85379; 85610; 85730; 87015; 87070; 87081; 89051; 93005; 93306; 96365; 97161; 97530; 99285; G0378; J2270; J2405; J3490; J7030; Q9967

== ENCOUNTER 2021-06-20 17:53 | Emergency (ER) | payer MEDICARE ==
[~2021-06-20] VITALS: Ht 162.6 cm; Wt 75.0 kg
[~2021-06-20 17:53] MED LIST changes: +CHOL20004 PO; -CYAN500T63 PO; +CYAN500T71 PO; +FERR-119 PO; +FOLI0.4T14 PO; -folic acid tablet PO
[2021-06-20 18:50] LABS: BASOPHILS % (AUTO) 0.7 % (0-1); EOSINOPHILS # (AUTO) 0.1 X10'3 (0-0.9); EOSINOPHILS % (AUTO) 1.6 % (0-6); HEMATOCRIT 38.3 % (35.0-45.0); HEMOGLOBIN 13.2 g/dl (12.0-16.0); LYMPHOCYTES # (AUTO) 1.5 X10'3 (1.1-4.8); MEAN CORPUSCULAR HEMOGLOBIN 29.7 PG (27.0-31.0); MEAN CORPUSCULAR HGB CONC 34.4 g/dL (33.0-36.5); MEAN CORPUSCULAR VOLUME 86.2 FL (78-98); MEAN PLATELET VOLUME 7.6 FL (7.4-10.4); MONOCYTES # (AUTO) 0.4 X10'3 (0-0.9); NEUTROPHILS # (AUTO) 4.1 X10'3 (1.8-7.7); NEUTROPHILS % (AUTO) 66.7 % (42-75); PLATELET COUNT 317 X10'3 (140-440); RED BLOOD COUNT 4.45 X10'6 (4.20-5.60); RED CELL DISTRIBUTION WIDTH 13.1 % (11.5-14.5); WHITE BLOOD COUNT 6.1 X10'3 (4.5-11.0)
[2021-06-20] MEDS ORDERED: fentaNYL/PF 50MCG/1 ML 2ML syringe IV ONE (18:50)
[2021-06-20] MEDS ORDERED: iohexol 350MG/ML 100ml bottle IV ONE (18:50)
[2021-06-20 19:01] LABS: ALANINE AMINOTRANSFERASE 18 U/L (12-78); ALBUMIN 4.4 G/DL (3.4-5.0); ALBUMIN/GLOBULIN RATIO 1.2 (1.1-1.5); ALKALINE PHOSPHATASE 85 IU/L (46-116); ANION GAP 13 (8-16); ASPARTATE AMINO TRANSFERASE 13 U/L (10-37); BILIRUBIN,TOTAL 0.4 MG/DL (0.1-1.0); BLOOD UREA NITROGEN 13 MG/DL (7-18); BUN/CREATININE RATIO 14.8 (6.6-38.0); CALCIUM 9.3 MG/DL (8.5-10.1); CHLORIDE 105 MMOL/L (99-107); CREATININE 0.88 MG/DL (0.40-0.90); GLUCOSE 105 MG/DL (70-104); POTASSIUM 3.8 MMOL/L (3.5-5.1); SODIUM 145 MMOL/L (135-145); TOTAL CARBON DIOXIDE 27.3 MMOL/L (24-32); TOTAL PROTEIN 8.1 G/DL (6.4-8.2); eGFR 64 ML/MIN
[2021-06-20 21:50] VITALS: BP 105/69
== END 2021-06-20 21:52 | disposition home or self-care (01) ==
LOC: ER 17:54
DX: R07.89 Other chest pain (principal); R12 Heartburn; R11.0 Nausea; R19.7 Diarrhea, unspecified; Z72.89 Other problems related to lifestyle; Z79.899 Other long term (current) drug therapy
CPT/HCPCS: 36415; 71045; 71275; 80053; 83880; 84443; 84484; 85025; 93005; 99285; Q9967